=== PATIENT | male | born 2000 | race African-American/Black ===

== ENCOUNTER 2022-11-02 20:42 | Emergency (ER) | payer MEDICARE, MEDICAID, SELFPAY ==
[2022-11-02 20:50] VITALS: BP 127/82; PULSE 80; RESP 18; TEMP 36.6; O2SAT 96; BMI 34.9
[2022-11-02 21:30] LABS: Add Manual Diff / Slide Review NO; Basophils Absolute Auto 100 /uL (0-100); Basophils Percent Auto 0.7 % (0-2); Eosinophils Absolute Auto 300 /uL (0-450); Eosinophils Percent Auto 3.3 % (2-4); Hematocrit 39.6 % (41-53); Hemoglobin 13.7 g/dL (13.5-17.5); Lymphocytes Absolute Auto 2900 /uL (1100-4500); Lymphocytes Percent Auto 32.2 % (25-40); Mean Corpuscular HGB Conc 34.6 % (30-36); Mean Corpuscular Hemoglobin 30.4 PG (26-34); Mean Corpuscular Volume 87.9 fL (80-100); Monocytes Absolute Auto 600 /uL (0-900); Monocytes Percent Auto 6.9 % (3-14); Neutrophils Absolute Auto 5100 /uL (1500-7000); Neutrophils Percent Auto 56.9 % (50-75); Platelet Count 246 X10^3/uL (150-400); Red Blood Cell Count 4.51 X10^6/uL (4.5-5.9); Red Cell Distribution Width 14.6 % (11.6-14.8)
[2022-11-02 21:44] LABS: Alanine Aminotransferase 60 IU/L (<50); Albumin 4.5 g/dL (3.5-5.0); Albumin Globulin Ratio 1.5 (1.0-2.8); Alkaline Phosphatase 78 U/L (38-126); Aspartate Aminotransferase 41 IU/L (17-59); BUN Creatinine Ratio 15.6 (6-22); Bilirubin Total 0.3 mg/dL (0.2-1.3); Blood Urea Nitrogen 15 mg/dL (9-20); Carbon Dioxide 28 mmol/L (22-32); Chloride 105 mmol/L (98-107); Estimated Glomerular Filt Rate > 60 mL/min (>60); Globulin 3.1 g/dL (1.7-4.1); Glucose 91 mg/dL (70-100); HEMOLYSIS < 15 (0-50); Potassium 4.1 mmol/L (3.4-5.1); Sodium 140 mmol/L (137-145); Total Protein 7.6 g/dL (6.3-8.2)
[2022-11-02 21:53] LABS: Ethanol (ETOH) < 10 mg/dL
--- NOTE | 2022-11-02 21:59 | ED.PSYCH ---
HPI - Psych <Sher Vazquez DO - Last Filed: 11/04/22 00:43> General Chief Complaint: Psychiatric Symptoms Stated Complaint: SI, hearing voices Time Seen by Provider: 11/02/22 21:07 Source: patient Mode of arrival: Ambulatory History of Present Illness HPI Narrative: Patient is a 22-year-old male who comes in the emergency department today for evaluation of ?suicidal ideation? and also seeing things and hearing things. Is reported that he recently spent approximately 14 days had a mental health facility and was just discharged earlier this week. He is on Abilify and gabapentin but it is questionable as to whether not he has been taking these medicines over the past couple days. His father was the 1 who brought him here to the emergency department. Patient does have an extensive history of schizophrenia. During my evaluation the patient stated that he had ?suicidal ideation? but would not specifically go into the specifics of this with myself. He stated that he was seeing his brother in the room. He stated that the voice he was hearing was ?God? at one point he asked me ?are you God?. Patient denied that the voice that he was hearing was telling him to hurt himself. He stated that he does feel like he needs admitted back to a mental health facility in his willing to do so. He denies any drugs or alcohol. He stated that he did not try to hurt himself. Related Data Home Medications Medication Instructions Recorded Confirmed aripiprazole 20 mg tablet 20 mg PO DAILY 11/02/22 11/03/22 gabapentin 300 mg capsule 300 mg PO QPM 11/02/22 11/03/22 omeprazole 20 mg capsule,delayed 20 mg PO QAM 11/02/22 11/03/22 release Previous Rx's Medication Instructions Recorded penicillin V potassium 500 mg 500 mg PO QID 7 days #28 tabs 11/03/22 tablet Allergies Allergy/AdvReac Type Severity Reaction Status Date / Time No Known Drug Allergies Allergy Verified 11/02/22 22:12 Review of Systems <DO Andrew Conrad Last Filed: 11/04/22 00:43> Constitutional Comments: No fevers Cardiovascular Comments: Denies chest pain Respiratory Comments: Denies shortness of breath Gastrointestinal Comments: Denies abdominal pain Psychiatric Psychiatric: Reports system reviewed and no additional complaints, except as documented Patient History <DO Andrew Conrad Last Filed: 11/04/22 00:43> Social History Smoking Status: Current some day smoker Smoking Status: Current some day smoker Substance Use Type: does not use Exam <Sher Vazquez DO - Last Filed: 11/04/22 00:43> Initial Vital Signs Initial Vital Signs: Vital Signs Temperature 98 F 11/02/22 20:50 Pulse Rate 80 11/02/22 20:50 Respiratory Rate 18 11/02/22 20:50 Blood Pressure 127/82 11/02/22 20:50 Pulse Oximetry 96 11/02/22 20:50 Oxygen Delivery Method Room Air 11/02/22 20:50 Const General: comfortable and No ill appearing HENMT Head: normal to inspection and normocephalic Resp Effort & Inspection: normal respiratory effort Auscultation: clear to auscultation bilaterally Cardio Rate: regular rate Rhythm: regular rhythm GI Inspection: normal to inspection and non-distended Skin General: no rashes or lesions noted Neuro Other: Patient is alert to person and place Extrem Other: No gross deformities Psych Other: Patient is calm. He is cooperative. He is very respectful. He does state that he is ?suicidal ideation? but no specific plan. Patient does endorse visual hallucinations. He states he seeing his brother in the room. He also endorses auditory hallucinations. States he is hearing got talk to himself. He does appear to be somewhat paranoid. <Ricardo Puente DO - Last Filed: 11/04/22 07:09> Initial Vital Signs Initial Vital Signs: Vital Signs Temperature 98 F 11/02/22 20:50 Pulse Rate 80 11/02/22 20:50 Respiratory Rate 18 11/02/22 20:50 Blood Pressure 127/82 11/02/22 20:50 Pulse Oximetry 96 11/02/22 20:50 Oxygen Delivery Method Room Air 11/02/22 20:50 Course <Sher Vazquez DO - Last Filed: 11/04/22 00:43> Orders Ordered: Discontinued Medications Lorazepam (Lorazepam 0.5 Mg Tablet) 1 mg PO NOW ONE Stop: 11/03/22 11:29 Last Admin: 11/03/22 12:13 Dose: 1 mg Documented By: ROSS Lorazepam (Lorazepam 0.5 Mg Tablet) 1 mg PO NOW ONE Stop: 11/03/22 19:20 Last Admin: 11/03/22 19:26 Dose: 1 mg Documented By: BS Olanzapine (Olanzapine Odt 10 Mg Tab) 10 mg PO NOW ONE Stop: 11/02/22 22:00 Last Admin: 11/02/22 22:10 Dose: 10 mg Documented By: SB Vital Signs Vital signs: Vital Signs - 8 hr 11/03/22 17:40 Temperature 98.8 F Pulse Rate 74 Blood Pressure 119/68 Pulse Oximetry 94 Oxygen Delivery Method Room Air <Ricardo Puente DO - Last Filed: 11/04/22 07:09> Orders Ordered: Discontinued Medications Lorazepam (Lorazepam 0.5 Mg Tablet) 1 mg PO NOW ONE Stop: 11/03/22 11:29 Last Admin: 11/03/22 12:13 Dose: 1 mg Documented By: ROSS Lorazepam (Lorazepam 0.5 Mg Tablet) 1 mg PO NOW ONE Stop: 11/03/22 19:20 Last Admin: 11/03/22 19:26 Dose: 1 mg Documented By: RIP Olanzapine (Olanzapine Odt 10 Mg Tab) 10 mg PO NOW ONE Stop: 11/02/22 22:00 Last Admin: 11/02/22 22:10 Dose: 10 mg Documented By: SB Vital Signs Vital signs: Vital Signs - 8 hr 11/03/22 17:40 Temperature 98.8 F Pulse Rate 74 Blood Pressure 119/68 Pulse Oximetry 94 Oxygen Delivery Method Room Air MDM - Psych <Sher Vazquez DO - Last Filed: 11/04/22 00:43> Lab Data Attestation: I reviewed the patient's lab results. 11/02/22 21:21 11/02/22 21:21 Labs: Lab Results 11/02/22 11/02/22 11/02/22 Range/Units 21:07 21:07 21:21 WBC 9.0 (4.5-11.0) X10^3/uL RBC 4.51 (4.5-5.9) X10^6/uL Hgb 13.7 (13.5-17.5) g/dL Hct 39.6 L (41-53) % MCV 87.9 (80-100) fL MCH 30.4 (26-34) PG MCHC 34.6 (30-36) % RDW 14.6 (11.6-14.8) % Plt Count 246 (150-400) X10^3/uL Neut % (Auto) 56.9 (50-75) % Lymph % (Auto) 32.2 (25-40) % Bent % (Auto) 6.9 (3-14) % Eos % (Auto) 3.3 (2-4) % Baso % (Auto) 0.7 (0-2) % Neut # (Auto) 5100 (3901-6596) /uL Lymph # (Auto) 2900 (1198-2100) /uL Bent # (Auto) 600 (0-900) /uL Eos # (Auto) 300 (0-450) /uL Baso # (Auto) 100 (0-100) /uL Sodium (137-145) mmol/L Potassium (3.4-5.1) mmol/L Chloride (98-107) mmol/L Carbon Dioxide (22-32) mmol/L BUN (9-20) mg/dL Creatinine (0.66-1.25) mg/dL Estimated GFR (>60) mL/min BUN/Creatinine Ratio (6-22) Glucose (70-100) mg/dL Calcium (8.4-10.2) mg/dL Total Bilirubin (0.2-1.3) mg/dL AST (17-59) IU/L ALT (<50) IU/L Alkaline Phosphatase (38-126) U/L Total Protein (6.3-8.2) g/dL Albumin (3.5-5.0) g/dL Globulin (1.7-4.1) g/dL Albumin/Globulin Ratio (1.0-2.8) Urine Color Yellow Urine Appearance Clear Urine pH 6.5 (4.5-8.0) Ur Specific [place] 1.025 (1.000-1.035) Urine Protein Negative (Negative) Urine Glucose (UA) Negative (Negative) g/dL Urine Ketones Negative (NEGATIVE) Urine Occult Blood Negative (Negative) Urine Nitrate Negative (Negative) Urine Bilirubin Negative (NEGATIVE) Urine Urobilinogen 0.2 (0.2) E.U./dL Ur Leukocyte Esterase Negative (NEGATIVE) Urine RBC None seen (0-5/HPF) Urine WBC None seen (0-5/HPF) Urine Bacteria None seen (None) Ur Culture Indicated? Cult not indicated U Opiates 300ng/mL cut Negative (Negative) Ur Oxycodone Screen Negative (Negative) Urine Methadone Screen Negative (Negative) Ur Barbiturates Screen Negative (Negative) U Tricyclic Antidepress Negative (Negative) Ur Phencyclidine Scrn Negative (Negative) Ur Amphetamines Screen Negative (Negative) U Methamphetamines Scrn Negative (Negative) Ur MDMA Scrn (Ecstasy) Negative (Negative) U Benzodiazepines Scrn Positive H (Negative) Urine Cocaine Screen Negative (Negative) U Marijuana (THC) Screen Negative (Negative) Ethyl Alcohol ( - 10) mg/dL SARS-CoV-2 (PCR) (Negative) 11/02/22 11/03/22 Range/Units 21:21 09:41 WBC (4.5-11.0) X10^3/uL RBC (4.5-5.9) X10^6/uL Hgb (13.5-17.5) g/dL Hct (41-53) % MCV (80-100) fL MCH (26-34) PG MCHC (30-36) % RDW (11.6-14.8) % Plt Count (150-400) X10^3/uL Neut % (Auto) (50-75) % Lymph % (Auto) (25-40) % Bent % (Auto) (3-14) % Eos % (Auto) (2-4) % Baso % (Auto) (0-2) % Neut # (Auto) (7617-9633) /uL Lymph # (Auto) (5780-1098) /uL Bent # (Auto) (0-900) /uL Eos # (Auto) (0-450) /uL Baso # (Auto) (0-100) /uL Sodium 140 (137-145) mmol/L Potassium 4.1 (3.4-5.1) mmol/L Chloride 105 (98-107) mmol/L Carbon Dioxide 28 (22-32) mmol/L BUN 15 (9-20) mg/dL Creatinine 0.96 (0.66-1.25) mg/dL Estimated GFR > 60 (>60) mL/min BUN/Creatinine Ratio 15.6 (6-22) Glucose 91 (70-100) mg/dL Calcium 9.0 (8.4-10.2) mg/dL Total Bilirubin 0.3 (0.2-1.3) mg/dL AST 41 (17-59) IU/L ALT 60 H (<50) IU/L Alkaline Phosphatase 78 (38-126) U/L Total Protein 7.6 (6.3-8.2) g/dL Albumin 4.5 (3.5-5.0) g/dL Globulin 3.1 (1.7-4.1) g/dL Albumin/Globulin Ratio 1.5 (1.0-2.8) Urine Color Urine Appearance Urine pH (4.5-8.0) Ur Specific [place] (1.000-1.035) Urine Protein (Negative) Urine Glucose (UA) (Negative) g/dL Urine Ketones (NEGATIVE) Urine Occult Blood (Negative) Urine Nitrate (Negative) Urine Bilirubin (NEGATIVE) Urine Urobilinogen (0.2) E.U./dL Ur Leukocyte Esterase (NEGATIVE) Urine RBC (0-5/HPF) Urine WBC (0-5/HPF) Urine Bacteria (None) Ur Culture Indicated? U Opiates 300ng/mL cut (Negative) Ur Oxycodone Screen (Negative) Urine Methadone Screen (Negative) Ur Barbiturates Screen (Negative) U Tricyclic Antidepress (Negative) Ur Phencyclidine Scrn (Negative) Ur Amphetamines Screen (Negative) U Methamphetamines Scrn (Negative) Ur MDMA Scrn (Ecstasy) (Negative) U Benzodiazepines Scrn (Negative) Urine Cocaine Screen (Negative) U Marijuana (THC) Screen (Negative) Ethyl Alcohol < 10 ( - 10) mg/dL SARS-CoV-2 (PCR) Negative (Negative) ECG Data Attestation: I personally reviewed and interpreted this ECG as follows: Interpretation: Sinus rhythm Ventricular rate 90 Normal axis Normal QRS Normal QTC No ST T wave changes MDM Narrative Medical decision making narrative: Patient is medically clear. He did agree to take some medication to try to help calm him down. He was reassured that this was a safe place. He took the Zyprexa without any issue. Patient endorses auditory and visual hallucinations. He appears to be responding to internal stimuli. Patient is voluntary. We contacted the facility where he was just discharged earlier this week. They stated they did not have any beds and that he would need social work evaluation prior to their review of his case today. Care turned over to day provider to follow-up and disposition. Dr Vazquez: Assumed care patient at this start him I evening shift. Review patient's daily events. He remains medically cleared. He has been accepted [facility]. He is still voluntary. He did state that he was having some dental pain. He has had this in the past. He is received antibiotics in the past. He states that the pain just started today. An exam today does not show any signs of an overt infection intraorally however he is being transferred to a mental health facility and given his history there is a good chance he is going to be this facility for an extended period of time. I do feel that starting him on antibiotics is not unreasonable. He was given a prescription for this. Patient is stable for transport. <Ricardo Puente, - Last Filed: 11/04/22 07:09> Lab Data Labs: Lab Results 11/02/22 11/02/22 11/02/22 Range/Units 21:07 21:07 21:21 WBC 9.0 (4.5-11.0) X10^3/uL RBC 4.51 (4.5-5.9) X10^6/uL Hgb 13.7 (13.5-17.5) g/dL Hct 39.6 L (41-53) % MCV 87.9 (80-100) fL MCH 30.4 (26-34) PG MCHC 34.6 (30-36) % RDW 14.6 (11.6-14.8) % Plt Count 246 (150-400) X10^3/uL Neut % (Auto) 56.9 (50-75) % Lymph % (Auto) 32.2 (25-40) % Bent % (Auto) 6.9 (3-14) % Eos % (Auto) 3.3 (2-4) % Baso % (Auto) 0.7 (0-2) % Neut # (Auto) 5100 (0635-0471) /uL Lymph # (Auto) 2900 (1014-6349) /uL Bent # (Auto) 600 (0-900) /uL Eos # (Auto) 300 (0-450) /uL Baso # (Auto) 100 (0-100) /uL Sodium (137-145) mmol/L Potassium (3.4-5.1) mmol/L Chloride (98-107) mmol/L Carbon Dioxide (22-32) mmol/L BUN (9-20) mg/dL Creatinine (0.66-1.25) mg/dL Estimated GFR (>60) mL/min BUN/Creatinine Ratio (6-22) Glucose (70-100) mg/dL Calcium (8.4-10.2) mg/dL Total Bilirubin (0.2-1.3) mg/dL AST (17-59) IU/L ALT (<50) IU/L Alkaline Phosphatase (38-126) U/L Total Protein (6.3-8.2) g/dL Albumin (3.5-5.0) g/dL Globulin (1.7-4.1) g/dL Albumin/Globulin Ratio (1.0-2.8) Urine Color Yellow Urine Appearance Clear Urine pH 6.5 (4.5-8.0) Ur Specific [place] 1.025 (1.000-1.035) Urine Protein Negative (Negative) Urine Glucose (UA) Negative (Negative) g/dL Urine Ketones Negative (NEGATIVE) Urine Occult Blood Negative (Negative) Urine Nitrate Negative (Negative) Urine Bilirubin Negative (NEGATIVE) Urine Urobilinogen 0.2 (0.2) E.U./dL Ur Leukocyte Esterase Negative (NEGATIVE) Urine RBC None seen (0-5/HPF) Urine WBC None seen (0-5/HPF) Urine Bacteria None seen (None) Ur Culture Indicated? Cult not indicated U Opiates 300ng/mL cut Negative (Negative) Ur Oxycodone Screen Negative (Negative) Urine Methadone Screen Negative (Negative) Ur Barbiturates Screen Negative (Negative) U Tricyclic Antidepress Negative (Negative) Ur Phencyclidine Scrn Negative (Negative) Ur Amphetamines Screen Negative (Negative) U Methamphetamines Scrn Negative (Negative) Ur MDMA Scrn (Ecstasy) Negative (Negative) U Benzodiazepines Scrn Positive H (Negative) Urine Cocaine Screen Negative (Negative) U Marijuana (THC) Screen Negative (Negative) Ethyl Alcohol ( - 10) mg/dL SARS-CoV-2 (PCR) (Negative) 11/02/22 11/03/22 Range/Units 21:21 09:41 WBC (4.5-11.0) X10^3/uL RBC (4.5-5.9) X10^6/uL Hgb (13.5-17.5) g/dL Hct (41-53) % MCV (80-100) fL MCH (26-34) PG MCHC (30-36) % RDW (11.6-14.8) % Plt Count (150-400) X10^3/uL Neut % (Auto) (50-75) % Lymph % (Auto) (25-40) % Bent % (Auto) (3-14) % Eos % (Auto) (2-4) % Baso % (Auto) (0-2) % Neut # (Auto) (9714-8387) /uL Lymph # (Auto) (7475-0803) /uL Bent # (Auto) (0-900) /uL Eos # (Auto) (0-450) /uL Baso # (Auto) (0-100) /uL Sodium 140 (137-145) mmol/L Potassium 4.1 (3.4-5.1) mmol/L Chloride 105 (98-107) mmol/L Carbon Dioxide 28 (22-32) mmol/L BUN 15 (9-20) mg/dL Creatinine 0.96 (0.66-1.25) mg/dL Estimated GFR > 60 (>60) mL/min BUN/Creatinine Ratio 15.6 (6-22) Glucose 91 (70-100) mg/dL Calcium 9.0 (8.4-10.2) mg/dL Total Bilirubin 0.3 (0.2-1.3) mg/dL AST 41 (17-59) IU/L ALT 60 H (<50) IU/L Alkaline Phosphatase 78 (38-126) U/L Total Protein 7.6 (6.3-8.2) g/dL Albumin 4.5 (3.5-5.0) g/dL Globulin 3.1 (1.7-4.1) g/dL Albumin/Globulin Ratio 1.5 (1.0-2.8) Urine Color Urine Appearance Urine pH (4.5-8.0) Ur Specific [place] (1.000-1.035) Urine Protein (Negative) Urine Glucose (UA) (Negative) g/dL Urine Ketones (NEGATIVE) Urine Occult Blood (Negative) Urine Nitrate (Negative) Urine Bilirubin (NEGATIVE) Urine Urobilinogen (0.2) E.U./dL Ur Leukocyte Esterase (NEGATIVE) Urine RBC (0-5/HPF) Urine WBC (0-5/HPF) Urine Bacteria (None) Ur Culture Indicated? U Opiates 300ng/mL cut (Negative) Ur Oxycodone Screen (Negative) Urine Methadone Screen (Negative) Ur Barbiturates Screen (Negative) U Tricyclic Antidepress (Negative) Ur Phencyclidine Scrn (Negative) Ur Amphetamines Screen (Negative) U Methamphetamines Scrn (Negative) Ur MDMA Scrn (Ecstasy) (Negative) U Benzodiazepines Scrn (Negative) Urine Cocaine Screen (Negative) U Marijuana (THC) Screen (Negative) Ethyl Alcohol < 10 ( - 10) mg/dL SARS-CoV-2 (PCR) Negative (Negative) MDM Narrative Medical decision making narrative: Patient is medically clear. He did agree to take some medication to try to help calm him down. He was reassured that this was a safe place. He took the Zyprexa without any issue. Patient endorses auditory and visual hallucinations. He appears to be responding to internal stimuli. Patient is voluntary. We contacted the facility where he was just discharged earlier this week. They stated they did not have any beds and that he would need social work evaluation prior to their review of his case today. Care turned over to day provider to follow-up and disposition. [0700] (Kwame) Patient received in sign out from [Taylor]. I have reviewed the clinical course and performed an independent history and physical exam. Resting awaiting [employer] 1300 - working on placement Dr Vazquez: Assumed care patient at this start him I evening shift. Review patient's daily events. He remains medically cleared. He has been accepted at [facility]. He is still voluntary. He did state that he was having some dental pain. He has had this in the past. He is received antibiotics in the past. He states that the pain just started today. An exam today does not show any signs of an overt infection intraorally however he is being transferred to a mental health facility and given his history there is a good chance he is going to be this facility for an extended period of time. I do feel that starting him on antibiotics is not unreasonable. He was given a prescription for this. Patient is stable for transport. <Ricardo Puente, DO - Last Filed: 11/04/22 07:09> Critical Care Time Critical Care Time: Yes Total Critical Care Time: 35 Attestation: The high probability of a clinically significant, sudden or life threatening deterioration of the [Psych] system(s) required my full and direct attention, intervention and personal management. The aggregate critical care time was [35] minutes. This time is in addition to time spent performing reported procedures but includes the following: [x] Data Review and interpretation [x] Patient assessment and monitoring of vital signs [x] Documentation [x] Medication orders and management Discharge Plan Departure Patient Disposition: Xfer Psychiatric Hosp Clinical Impression: Suicidal ideation, Hallucination, visual, Auditory hallucinations, Pain, dental Prescriptions: New penicillin V potassium 500 mg tablet 500 mg PO QID 7 Days Qty: 28 0RF No Action aripiprazole 20 mg tablet 20 mg PO DAILY gabapentin 300 mg capsule 300 mg PO QPM omeprazole 20 mg capsule,delayed release(DR/EC) 20 mg PO QAM
[2022-11-02] MEDS: OLANZapine ODT 10 MG TAB PO (22:10)
[2022-11-02 22:25] LABS: Appearance Urine UA CLEAR; Bilirubin Urine UA NEGATIVE (NEGATIVE); Color Urine UA YELLOW; Glucose Urine UA NEGATIVE (Negative); Ketones Urine UA NEGATIVE (NEGATIVE); Leukocyte Esterase Urine UA NEGATIVE (NEGATIVE); Nitrite Urine UA NEGATIVE (Negative); Occult Blood Urine UA NEGATIVE (Negative); Protein Urine UA NEGATIVE (Negative); Specific Gravity Urine UA 1.025 (1.000-1.035); Urobilinogen Urine UA 0.2 E.U./dL (0.2); pH Urine UA 6.5 (4.5-8.0)
[2022-11-02 22:34] LABS: Ur Creatinine Normal (Normal); Ur Specific Gravity Normal (Normal); Urine Tetrahydrocannabinol Negative (Negative); Urine pH Normal (Normal)
[2022-11-02 22:35] LABS: UR Morphine/Opiate cutoff 300 Negative (Negative); Urine Amphetamines Negative (Negative); Urine Barbiturates Negative (Negative); Urine Benzodiazepines Positive (Negative); Urine Cocaine Negative (Negative); Urine MDMA Negative (Negative); Urine Methadone Negative (Negative); Urine Methamphetamines Negative (Negative); Urine Oxycodone Negative (Negative); Urine Phencyclidine Negative (Negative); Urine Tricyclic Antidepressant Negative (Negative)
[2022-11-02 22:43] LABS: Bacteria Urine None Seen; Culture Indicated Urine Cult Not Indicated; RBC Urine None Seen (0-5/HPF); WBC Urine None Seen (0-5/HPF)
[2022-11-03 06:25] VITALS: BP 123/66; PULSE 70; O2SAT 96
[2022-11-03 09:56] VITALS: BP 122/66; PULSE 69; RESP 14; O2SAT 99
[2022-11-03 10:11] LABS: COVID19 -Nasal RAPID Negative (Negative)
[2022-11-03] MEDS: LORazepam 0.5 MG TABLET 1 MG PO ×2 (12:13→19:26)
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
--- NOTE | 2022-11-03 13:34 | PC.NURSE ---
social media community manager talking to
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
[2022-11-03 17:40] VITALS: BP 119/68; PULSE 74; TEMP 37.1; O2SAT 94
--- NOTE | 2022-11-03 20:09 | PC.NURSE ---
NEON LIGHT INSTALLER note: NWA supervisor opening and picking at 0100 for a 0215 drop off.
== END 2022-11-04 01:45 ==
PROVIDERS: Emergency Medicine; Emergency Provider Emergency Medicine
DX: R45.851 Suicidal ideations (principal); R44.1 Visual hallucinations; R44.0 Auditory hallucinations; R07.9 Chest pain, unspecified; K08.89 Other specified disorders of teeth and supporting structures; Z20.822 Contact with and (suspected) exposure to COVID-19
CPT/HCPCS: 36415; 80053; 80305; 80320; 81001; 85025; 87635; 93005; 93010; 99284; 99285; C9803

== ENCOUNTER 2023-03-18 13:57 | Emergency (ER) | payer MEDICARE, MEDICAID, SELFPAY ==
[2023-03-18 14:58] VITALS: BP 131/69; PULSE 94; RESP 18; TEMP 36.8; O2SAT 96; BMI 43.2
== END 2023-03-18 18:05 | disposition left against medical advice (07) ==
PROVIDERS: Emergency Provider Emergency Medicine
DX: R51.9 Headache, unspecified (principal)
CPT/HCPCS: 99281

== ENCOUNTER 2023-05-16 22:45 | Emergency (ER) | payer MEDICARE, MEDICAID, SELFPAY ==
[2023-05-16 22:50] VITALS: BP 136/83; PULSE 114; RESP 22; TEMP 37.2; O2SAT 96; BMI 45.6
--- NOTE | 2023-05-16 23:16 | ED_ITS ---
HPI - Psych General Chief Complaint: Psychiatric Symptoms Stated Complaint: hearing voices, wants help Time Seen by Provider: 05/16/23 22:53 Source: patient Mode of arrival: Ambulatory History of Present Illness HPI Narrative: 23-year-old male with history of schizoaffective disorder presents requesting help. He states that he always hears voices but they are more persistent today and he has suicidal ideation with plans to overdose on his psychiatric medications. He reports intermittent compliance with his medications. Denies drug or alcohol use. Related Data Home Medications Medication Instructions Recorded Confirmed bupropion HCl 150 mg 24 hr tablet, 150 mg PO QAM 03/18/23 03/18/23 extended release divalproex 500 mg tablet,delayed 500 mg PO BID 03/18/23 03/18/23 release olanzapine 5 mg tablet 5 mg PO ONCE PM 03/18/23 03/18/23 paliperidone palmitate 156 mg/mL mg IM 03/18/23 intramuscular syringe (Invega Sustenna) Allergies Allergy/AdvReac Type Severity Reaction Status Date / Time No Known Drug Allergies Allergy Verified 03/18/23 14:58 Review of Systems Review of Systems Narrative: Negative except as noted above Patient History Social History Smoking Status: Current some day smoker Smoking Status: Current some day smoker Substance Use Type: does not use Exam Initial Vital Signs Initial Vital Signs: Vital Signs Temperature 98.9 F 05/16/23 22:50 Pulse Rate 114 H 05/16/23 22:50 Respiratory Rate 22 05/16/23 22:50 Blood Pressure 136/83 05/16/23 22:50 Pulse Oximetry 96 05/16/23 22:50 Oxygen Delivery Method Room Air 05/16/23 22:50 Const: Awake, alert, no acute distress, nontoxic appearing Eyes: PERRL, EOMI, conjunctiva normal ENT: Atraumatic, dentition normal, mucous membranes moist Cardiac: regular rate, regular rhythm RESP: unlabored, clear bilaterally, no wheezing GI: Atraumatic, soft, nontender, nondistended, no rebound, no guarding MSK: Atraumatic, full range of motion, pulses equal Skin: Warm, Dry, intact, no rashes Neuro: AO x3, CN II-XII grossly intact, moves all extremities Psych: Flat affect, depressed mood, suicidal ideation with plan Course Course Course Narrative: Nontoxic appearing patient presenting for worsening auditory hallucinations and suicidal ideation. Patient previously here in October with similar presentation. At this time he is calm and cooperative, denying any self-harm attempt or drug/alcohol use this evening. Orders Ordered: Discontinued Medications Olanzapine (Olanzapine 2.5 Mg Tablet) 5 mg PO BEDTIME ONE Stop: 05/17/23 02:15 Last Admin: 05/17/23 02:19 Dose: 5 mg Documented By: BB Reevaluation(s) Reevaluation #1: Labs reviewed, no acute abnormalities. Medically cleared for SW eval in AM. Reevaluation #2: Patient accepted at [facility], pending transport. Patient has been calm and cooperative throughout the day with no events reported by nursing staff. Vital Signs Vital signs: Vital Signs - 8 hr 05/17/23 20:15 Pulse Rate 70 Respiratory Rate 18 Blood Pressure 130/56 L Pulse Oximetry 97 Oxygen Delivery Method Room Air MDM - Psych Differential Diagnosis Differential diagnosis: Likely acute psychosis, chronic schizophrenia and suicidal ideation Lab Data 05/16/23 23:12 05/16/23 23:12 Labs: Lab Results 05/16/23 05/17/23 05/17/23 Range/Units 23:12 00:54 02:37 WBC 7.7 (4.5-11.0) X10^3/uL RBC 4.62 (4.5-5.9) X10^6/uL Hgb 13.8 (13.5-17.5) g/dL Hct 39.8 L (41-53) % MCV 86.1 (80-100) fL MCH 30.0 (26-34) PG MCHC 34.8 (30-36) % RDW 14.1 (11.6-14.8) % Plt Count 296 (150-400) X10^3/uL Neut % (Auto) 63.8 (50-75) % Lymph % (Auto) 26.1 (25-40) % Elliott % (Auto) 7.4 (3-14) % Eos % (Auto) 1.9 L (2-4) % Baso % (Auto) 0.8 (0-2) % Neut # (Auto) 4900 (0544-4115) /uL Lymph # (Auto) 2000 (5048-2218) /uL Elliott # (Auto) 600 (0-900) /uL Eos # (Auto) 100 (0-450) /uL Baso # (Auto) 100 (0-100) /uL Sodium 139 (137-145) mmol/L Potassium 4.0 (3.4-5.1) mmol/L Chloride 106 (98-107) mmol/L Carbon Dioxide 23 (22-32) mmol/L BUN 11 (9-20) mg/dL Creatinine 0.95 (0.66-1.25) mg/dL Estimated GFR > 60 (>60) mL/min BUN/Creatinine Ratio 11.6 (6-22) Glucose 92 (70-100) mg/dL Calcium 9.7 (8.4-10.2) mg/dL Total Bilirubin 0.4 (0.2-1.3) mg/dL AST 73 H (17-59) IU/L ALT 52 H (<50) IU/L Alkaline Phosphatase 100 (38-126) U/L Total Protein 7.8 (6.3-8.2) g/dL Albumin 4.4 (3.5-5.0) g/dL Globulin 3.4 (1.7-4.1) g/dL Albumin/Globulin Ratio 1.3 (1.0-2.8) TSH 2.80 (0.47-4.68) uIU/mL Urine Color Yellow Urine Appearance Clear Urine pH 6.5 (4.5-8.0) Ur Specific Hayes 1.010 (1.000-1.035) Urine Protein Negative (Negative) Urine Glucose (UA) Negative (Negative) g/dL Urine Ketones Negative (NEGATIVE) Urine Occult Blood Negative (Negative) Urine Nitrate Negative (Negative) Urine Bilirubin Negative (NEGATIVE) Urine Urobilinogen 0.2 (0.2) E.U./dL Ur Leukocyte Esterase Negative (NEGATIVE) Urine RBC None seen (0-5/HPF) Urine WBC None seen (0-5/HPF) Ur Squamous Epith Cells None seen (0-5/HPF) Urine Bacteria None seen (None) Ur Culture Indicated? Cult not indicated Salicylates < 1.0 (<20) mg/dL U Opiates 300ng/mL cut Negative (Negative) Ur Oxycodone Screen Negative (Negative) Urine Methadone Screen Negative (Negative) Acetaminophen < 10 (10-30) ug/mL Ur Barbiturates Screen Negative (Negative) U Tricyclic Antidepress Negative (Negative) Ur Phencyclidine Scrn Negative (Negative) Ur Amphetamines Screen Negative (Negative) U Methamphetamines Scrn Negative (Negative) Ur MDMA Scrn (Ecstasy) Negative (Negative) U Benzodiazepines Scrn Negative (Negative) Urine Cocaine Screen Negative (Negative) U Marijuana (THC) Screen Negative (Negative) Ethyl Alcohol < 10 ( - 10) mg/dL SARS-CoV-2 (PCR) Negative (Negative) Treatment and disposition Social Determinants of Health that impact treatment or disposition: s chizophrenia, good social support Discharge Plan Departure Patient Disposition: Xfer Psychiatric Hosp Clinical Impression: Acute psychosis, Suicidal ideation, Chronic schizophrenia Prescriptions: No Action olanzapine 5 mg tablet 5 mg PO ONCE PM divalproex 500 mg tablet,delayed release (DR/EC) 500 mg PO BID bupropion HCl 150 mg tablet extended release 24 hr 150 mg PO QAM Invega Sustenna 156 mg/mL syringe IM
[2023-05-16 23:22] LABS: Add Manual Diff / Slide Review NO; Basophils Absolute Auto 100 /uL (0-100); Basophils Percent Auto 0.8 % (0-2); Eosinophils Absolute Auto 100 /uL (0-450); Eosinophils Percent Auto 1.9 % (2-4); Hematocrit 39.8 % (41-53); Hemoglobin 13.8 g/dL (13.5-17.5); Lymphocytes Absolute Auto 2000 /uL (1100-4500); Lymphocytes Percent Auto 26.1 % (25-40); Mean Corpuscular HGB Conc 34.8 % (30-36); Mean Corpuscular Volume 86.1 fL (80-100); Monocytes Absolute Auto 600 /uL (0-900); Monocytes Percent Auto 7.4 % (3-14); Neutrophils Absolute Auto 4900 /uL (1500-7000); Neutrophils Percent Auto 63.8 % (50-75); Platelet Count 296 X10^3/uL (150-400); Red Blood Cell Count 4.62 X10^6/uL (4.5-5.9); Red Cell Distribution Width 14.1 % (11.6-14.8); White Blood Cell Count 7.7 X10^3/uL (4.5-11.0)
[2023-05-16 23:38] LABS: Acetaminophen < 10 ug/mL (10-30); Alanine Aminotransferase 52 IU/L (<50); Albumin 4.4 g/dL (3.5-5.0); Albumin Globulin Ratio 1.3 (1.0-2.8); Alkaline Phosphatase 100 U/L (38-126); Aspartate Aminotransferase 73 IU/L (17-59); BUN Creatinine Ratio 11.6 (6-22); Bilirubin Total 0.4 mg/dL (0.2-1.3); Blood Urea Nitrogen 11 mg/dL (9-20); Calcium 9.7 mg/dL (8.4-10.2); Carbon Dioxide 23 mmol/L (22-32); Chloride 106 mmol/L (98-107); Estimated Glomerular Filt Rate > 60 mL/min (>60); Ethanol (ETOH) < 10 mg/dL; Globulin 3.4 g/dL (1.7-4.1); Glucose 92 mg/dL (70-100); HEMOLYSIS < 15 (0-50); Salicylate < 1.0 mg/dL (<20); Sodium 139 mmol/L (137-145); Total Protein 7.8 g/dL (6.3-8.2)
--- NOTE | 2023-05-17 00:38 | PC.NURSE ---
Provided patient with snack and andre garret.
[2023-05-17 01:00] VITALS: BP 110/66; PULSE 82; RESP 16; TEMP 36.8; O2SAT 96
[2023-05-17 01:26] LABS: Appearance Urine UA CLEAR; Bilirubin Urine UA NEGATIVE (NEGATIVE); Color Urine UA YELLOW; Glucose Urine UA NEGATIVE (Negative); Ketones Urine UA NEGATIVE (NEGATIVE); Leukocyte Esterase Urine UA NEGATIVE (NEGATIVE); Nitrite Urine UA NEGATIVE (Negative); Occult Blood Urine UA NEGATIVE (Negative); Protein Urine UA NEGATIVE (Negative); Urobilinogen Urine UA 0.2 E.U./dL (0.2); pH Urine UA 6.5 (4.5-8.0)
[2023-05-17 01:30] LABS: UR Morphine/Opiate cutoff 300 Negative (Negative); Ur Creatinine Normal (Normal); Ur Specific Gravity Normal (Normal); Urine Amphetamines Negative (Negative); Urine Barbiturates Negative (Negative); Urine Benzodiazepines Negative (Negative); Urine Cocaine Negative (Negative); Urine MDMA Negative (Negative); Urine Methadone Negative (Negative); Urine Methamphetamines Negative (Negative); Urine Oxycodone Negative (Negative); Urine Phencyclidine Negative (Negative); Urine Tetrahydrocannabinol Negative (Negative); Urine Tricyclic Antidepressant Negative (Negative); Urine pH Normal (Normal)
[2023-05-17 01:35] LABS: Bacteria Urine None Seen; Culture Indicated Urine Cult Not Indicated; RBC Urine None Seen (0-5/HPF); Squamous Epithelial Cell Urine None Seen (0-5/HPF); WBC Urine None Seen (0-5/HPF)
[2023-05-17] MEDS: OLANZapine 2.5 MG TABLET 5 MG PO (02:19)
[2023-05-17 03:04] LABS: COVID19 -Nasal RAPID Negative (Negative)
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
[2023-05-17 12:16] VITALS: BP 130/82; PULSE 107; O2SAT 98
--- NOTE | 2023-05-17 15:53 | CM.SWNOTE ---
ED MANNEQUIN REFINISHER Note MANNEQUIN REFINISHER calls [facility], it is reported that the unit is full today and they may have availability tomorrow. medical examiner calls [facility], it is reported they are full and may have beds later today. MANNEQUIN REFINISHER calls [facility] it is reported they have beds and can review patient. MANNEQUIN REFINISHER faxes clinicals for review. MANNEQUIN REFINISHER calls [facility] intake, it is reported they have 1 bed and can review patient, MANNEQUIN REFINISHER faxes clinicals for review. MANNEQUIN REFINISHER calls [facility] and leaves VM MANNEQUIN REFINISHER calls [facility], they do not have beds. [facility] faxes that they do not have bed availability. MANNEQUIN REFINISHER calls [facility], it is reported that they do not have beds. MANNEQUIN REFINISHER receives return call from [facility], it is reported that patient has been accepted by AMBER Combs. RN to RN is [phone], with ETA of 2130. [facility] requires pre auth from insurance. MANNEQUIN REFINISHER calls [employer] pre-auth line and faxes pre-auth form and clinicals. MANNEQUIN REFINISHER receives Pre-auth # [id number]. MANNEQUIN REFINISHER calls [facility] Amalia at intake and she takes that they will formally accept patient. A ambulance transport set up for 2044 pickling operator. [facility] later calls back and states they can accept patient, they are informed that patient was accepted elsewhere. MANNEQUIN REFINISHER informs other facilities as well. Patient is currently sleeping, MANNEQUIN REFINISHER to inform patient of this transfer and inform his father if patient gives consent. Plan: patient to transfer to [facility] unit for inpatient hospitalization this evening. Vidhya Cordon, SCALE AND SKIP CAR OPERATOR
[2023-05-17 20:15] VITALS: BP 130/56; PULSE 70; RESP 18; O2SAT 97
== END 2023-05-17 21:14 ==
PROVIDERS: Emergency Provider Emergency Medicine
DX: F20.9 Schizophrenia, unspecified (principal); R45.851 Suicidal ideations; Z11.52 Encounter for screening for COVID-19
CPT/HCPCS: 36415; 80053; 80305; 80320; 80329; 81001; 84443; 85025; 87635; 93005; 99284; C9803; G0480

== ENCOUNTER 2023-06-22 18:50 | Emergency (ER) | payer MEDICARE, MEDICAID, OTHER, SELFPAY ==
[2023-06-22 19:10] VITALS: BP 167/92; PULSE 113; RESP 18; TEMP 37.1; O2SAT 95; BMI 47.1
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
--- NOTE | 2023-06-22 19:32 | ED.GENADULT ---
HPI - General Adult General Chief complaint: Psychiatric Symptoms Stated complaint: mental health issues Time Seen by Provider: 06/22/23 19:31 Source: patient Mode of arrival: Ambulatory History of Present Illness HPI narrative: 23 yo Patient has a diagnosis is schizoaffective bipolar type., took 4 doses of his anxiety medication and he is unable to defined which medication is his ?anxiety medication. His intention was to overdose. Patient remains suicidal in the emergency department and has not been taking medications, medications were refilled approximately a week ago. He states that he has not taken any medications since his [facility] stay from May 17 to May 24. There was a psychiatric admission at [facility] in May. His reason for admission at that time was increasing suicidal ideation. He is presenting requesting help. Related Data Home Medications Medication Instructions Recorded Confirmed bupropion HCl 150 mg 24 hr tablet, 150 mg PO QAM 03/18/23 06/22/23 extended release divalproex 500 mg tablet,delayed 1,000 mg PO BID 03/18/23 06/22/23 release olanzapine 5 mg tablet 5 mg PO ONCE PM 03/18/23 06/22/23 buspirone 5 mg tablet 5 mg PO 3XD anxiety 06/22/23 06/22/23 risperidone 2 mg tablet 2 mg PO ONCE PM 06/22/23 06/22/23 Allergies Allergy/AdvReac Type Severity Reaction Status Date / Time No Known Drug Allergies Allergy Verified 06/22/23 19:21 Review of Systems Review of Systems Narrative: Pertinent positive and negative findings as per HPI Patient History Medical History (Updated 06/22/23 @ 20:20 by Evonne De Guzman MD) Schizoaffective disorder, bipolar type Social History Smoking Status: Current every day smoker Smoking Status: Current every day smoker tobacco type: cigarettes and vaping Substance Use Type: does not use Exam Initial Vital Signs Initial Vital Signs: Vital Signs Temperature 98.7 F 06/22/23 19:10 Pulse Rate 113 H 06/22/23 19:10 Respiratory Rate 18 06/22/23 19:10 Blood Pressure 167/92 H 06/22/23 19:10 Pulse Oximetry 95 06/22/23 19:10 Oxygen Delivery Method Room Air 06/22/23 19:10 General: Healthy appearing, in no acute distress. Able to give a complete and coherent history. Well-nourished well-developed HEENT: Moist mucous membranes, normal sclera with reactive pupils, Respiratory: Lungs are clear to auscultation, no wheezing no rales no rhonchi. Full and symmetrical air movement Cardiac: Regular rate and rhythm no murmurs no bruits Abdomen: Soft, nontender, good bowel tones, no flank pain Skin: Warm and dry, no rashes, no evidence of self-harm Neurologic: Grossly neurologically intact with no obvious asymmetries or abnormalities Extremities: No trauma, well perfused Psych: Cooperative, somewhat flat affect, quiet but fluent speech, not responding to internal stimuli Course Orders Ordered: Discontinued Medications Divalproex Sodium (Divalproex Er 250 Mg Tab) 1,000 mg PO NOW ONE Stop: 06/22/23 19:59 Last Admin: 06/22/23 20:12 Dose: 1,000 mg Documented By: ALBAN Risperidone (Risperidone 1 Mg Tablet) 2 mg PO BEDTIME LINDA Last Admin: 06/22/23 20:12 Dose: 2 mg Documented By: ALBAN Vital Signs Vital signs: Vital Signs - 8 hr 06/22/23 23:50 Pulse Rate 108 H Respiratory Rate 18 Blood Pressure 130/78 Pulse Oximetry 99 Oxygen Delivery Method Room Air Medical Decision Making Lab Data 06/22/23 19:34 06/22/23 19:34 Labs: Lab Results 06/22/23 06/22/23 06/22/23 Range/Units 19:25 19:34 19:44 WBC 9.1 (4.5-11.0) X10^3/uL RBC 4.81 (4.5-5.9) X10^6/uL Hgb 14.4 (13.5-17.5) g/dL Hct 41.8 (41-53) % MCV 86.7 (80-100) fL MCH 30.0 (26-34) PG MCHC 34.6 (30-36) % RDW 13.7 (11.6-14.8) % Plt Count 303 (150-400) X10^3/uL Neut % (Auto) 60.1 (50-75) % Lymph % (Auto) 30.4 (25-40) % [place] % (Auto) 6.8 (3-14) % Eos % (Auto) 2.1 (2-4) % Baso % (Auto) 0.6 (0-2) % Neut # (Auto) 5500 (3755-0240) /uL Lymph # (Auto) 2800 (4841-2877) /uL [place] # (Auto) 600 (0-900) /uL Eos # (Auto) 200 (0-450) /uL Baso # (Auto) 100 (0-100) /uL Sodium 141 (137-145) mmol/L Potassium 3.9 (3.4-5.1) mmol/L Chloride 103 (98-107) mmol/L Carbon Dioxide 24 (22-32) mmol/L BUN 11 (9-20) mg/dL Creatinine 0.95 (0.66-1.25) mg/dL Estimated GFR > 60 (>60) mL/min BUN/Creatinine Ratio 11.6 (6-22) Glucose 101 H (70-100) mg/dL Calcium 9.4 (8.4-10.2) mg/dL Total Bilirubin 0.4 (0.2-1.3) mg/dL AST 54 (17-59) IU/L ALT 50 H (<50) IU/L Alkaline Phosphatase 93 (38-126) U/L Total Protein 8.0 (6.3-8.2) g/dL Albumin 4.5 (3.5-5.0) g/dL Globulin 3.5 (1.7-4.1) g/dL Albumin/Globulin Ratio 1.3 (1.0-2.8) TSH 1.61 (0.47-4.68) uIU/mL Free T4 0.96 (0.78-2.19) ng/dL Salicylates < 1.0 (<20) mg/dL U Opiates 300ng/mL cut Negative (Negative) Ur Oxycodone Screen Negative (Negative) Urine Methadone Screen Negative (Negative) Acetaminophen < 10 (10-30) ug/mL Ur Barbiturates Screen Negative (Negative) U Tricyclic Antidepress Negative (Negative) Ur Phencyclidine Scrn Negative (Negative) Ur Amphetamines Screen Negative (Negative) U Methamphetamines Scrn Negative (Negative) Ur MDMA Scrn (Ecstasy) Negative (Negative) U Benzodiazepines Scrn Negative (Negative) Urine Cocaine Screen Negative (Negative) U Marijuana (THC) Screen Negative (Negative) Urine pH Normal (Normal) Urine Specific [place] Normal (Normal) Ethyl Alcohol < 10 ( - 10) mg/dL Ur Creatinine Normal (Normal) SARS-CoV-2 (PCR) Negative (Negative) Urine Dip Bedside Urine Glucose Negative Bedside Urine Bilirubin - Negative Bedside Urine Ketone - Negative Urine Specific [place] 1.030 Bedside Urine Occult Blood - Negative Bedside Urine pH 6 Bedside Urine Protein - Negative Bedside Urine Urobilinogen - Negative Bedside Urine Nitrite - Negative Bedside Urine Leukocytes - Negative Esterase Point of care testing: Urine Dip Bedside Urine Glucose Negative Bedside Urine Bilirubin - Negative Bedside Urine Ketone - Negative Urine Specific [place] 1.030 Bedside Urine Occult Blood - Negative Bedside Urine pH 6 Bedside Urine Protein - Negative Bedside Urine Urobilinogen - Negative Bedside Urine Nitrite - Negative Bedside Urine Leukocytes - Negative Esterase MDM Narrative Medical decision making narrative: CC: Schizoaffective bipolar type, increasing suicidal ideation, not taking medications, requesting help Complicating co-morbidities: Psychiatric hospital admission May 17 through . Has not been taking medications since discharge Data collected from: patient Social determinants of health that may influence the patients condition: Schizoaffective bipolar type, currently lives with his father Medical records reviewed: [facility] notes from recent hospital admission reviewed. Discharge medications are supposed to be risperidone 2 mg nightly. Divalproex 24 hour tablet 1 g nightly, Wellbutrin XL 150 mg daily, Invega Sustenna 234 mg monthly (notes indicate that his Invega is managed by outpatient doctors and was last given in early May) buspirone 5 mg 3 times daily Differential considered: Continued symptomatic schizoaffective bipolar type with increasing negative auditory hallucinations that are not command hallucinations. He is not having visual hallucinations. Has not been taking his medications Exam documented above, pertinent findings include: Patient is calm somewhat fearful but not responding to internal stimuli. Cooperates fully. Physical exam is benign Lab Test results independently reviewed as above. Pertinent findings: CBC is unremarkable Chemistries show no significant abnormalities Alcohol level is undetectable Salicylate and acetaminophen levels are undetectable Urine drug screen is negative COVID test is negative Consultations: Patient has been evaluated by our social services designee feels that he is a good cecy admit for suicidal ideation in the setting of schizoaffective disorder bipolar with medical noncompliance Treatments: He is given his nightly risperidone and divalproex. I believe it was 4 tablets of BuSpar that were taken tonight(which actually could be a therapeutic dose, certainly not a concerning overdose) if he remains here in the morning will add the Wellbutrin XL in the a.m.. Discussion: 23-year-old gentleman admitted to [facility] for similar complaints May 23. Has not been taking medication since. Likely is due for an Invega dose but I am unable to document when that actually needs to be given. Medically cleared at this time and [facility] has beds available. We will anticipate transfer to [facility] for additional treatment, voluntary placement 930 bed available at [facility], accepting doctor, Dr. Margarito Medina. Transport will be arranged Discharge Plan Departure Patient Disposition: Xfer Psychiatric Hosp Clinical Impression: Suicidal ideation, Schizoaffective disorder, bipolar type Prescriptions: No Action olanzapine 5 mg tablet 5 mg PO ONCE PM divalproex 500 mg tablet,delayed release (DR/EC) 1,000 mg PO BID bupropion HCl 150 mg tablet extended release 24 hr 150 mg PO QAM buspirone 5 mg tablet 5 mg PO 3XD risperidone 2 mg tablet 2 mg PO ONCE PM
[2023-06-22 19:40] LABS: UR Morphine/Opiate cutoff 300 Negative (Negative); Ur Creatinine Normal (Normal); Ur Specific Gravity Normal (Normal); Urine Amphetamines Negative (Negative); Urine Barbiturates Negative (Negative); Urine Benzodiazepines Negative (Negative); Urine Cocaine Negative (Negative); Urine MDMA Negative (Negative); Urine Methadone Negative (Negative); Urine Methamphetamines Negative (Negative); Urine Oxycodone Negative (Negative); Urine Phencyclidine Negative (Negative); Urine Tetrahydrocannabinol Negative (Negative); Urine Tricyclic Antidepressant Negative (Negative); Urine pH Normal (Normal)
[2023-06-22 19:42] LABS: Add Manual Diff / Slide Review NO; Basophils Absolute Auto 100 /uL (0-100); Basophils Percent Auto 0.6 % (0-2); Eosinophils Absolute Auto 200 /uL (0-450); Eosinophils Percent Auto 2.1 % (2-4); Hematocrit 41.8 % (41-53); Hemoglobin 14.4 g/dL (13.5-17.5); Lymphocytes Absolute Auto 2800 /uL (1100-4500); Lymphocytes Percent Auto 30.4 % (25-40); Mean Corpuscular HGB Conc 34.6 % (30-36); Mean Corpuscular Volume 86.7 fL (80-100); Monocytes Absolute Auto 600 /uL (0-900); Monocytes Percent Auto 6.8 % (3-14); Neutrophils Absolute Auto 5500 /uL (1500-7000); Neutrophils Percent Auto 60.1 % (50-75); Platelet Count 303 X10^3/uL (150-400); Red Blood Cell Count 4.81 X10^6/uL (4.5-5.9); Red Cell Distribution Width 13.7 % (11.6-14.8); White Blood Cell Count 9.1 X10^3/uL (4.5-11.0)
--- NOTE | 2023-06-22 19:49 | PC.NURSE ---
VALET CASHIER Note: Patient is looking around room, shaking head yes or no and smiling
[2023-06-22 19:54] LABS: Acetaminophen < 10 ug/mL (10-30); Alanine Aminotransferase 50 IU/L (<50); Albumin 4.5 g/dL (3.5-5.0); Albumin Globulin Ratio 1.3 (1.0-2.8); Alkaline Phosphatase 93 U/L (38-126); Aspartate Aminotransferase 54 IU/L (17-59); BUN Creatinine Ratio 11.6 (6-22); Bilirubin Total 0.4 mg/dL (0.2-1.3); Blood Urea Nitrogen 11 mg/dL (9-20); Calcium 9.4 mg/dL (8.4-10.2); Carbon Dioxide 24 mmol/L (22-32); Chloride 103 mmol/L (98-107); Estimated Glomerular Filt Rate > 60 mL/min (>60); Ethanol (ETOH) < 10 mg/dL; Globulin 3.5 g/dL (1.7-4.1); Glucose 101 mg/dL (70-100); HEMOLYSIS 24 (0-50); Potassium 3.9 mmol/L (3.4-5.1); Salicylate < 1.0 mg/dL (<20); Sodium 141 mmol/L (137-145)
[2023-06-22] MEDS: DIVALPROEX ER 250 MG TAB 1000 MG PO (20:12)
[2023-06-22] MEDS: risperiDONE 1 MG TABLET 2 MG PO (20:12)
[2023-06-22 20:16] LABS: COVID19 -Nasal RAPID Negative (Negative)
[2023-06-22 20:23] LABS: Free T4, Direct Thyroxine 0.96 ng/dL (0.78-2.19)
[2023-06-22 20:36] LABS: Thyroid Stimulating Hormone 1.61 uIU/mL (0.47-4.68)
--- NOTE | 2023-06-22 23:48 | PC.NURSE ---
Sat with patient starting at 2016. Patient calm & cooperative throughout the night. BLS transport picked up patient @ 1605. Belongings with transport team.
[2023-06-22 23:50] VITALS: BP 130/78; PULSE 108; RESP 18; O2SAT 99
== END 2023-06-22 23:52 ==
PROVIDERS: Emergency Provider Emergency Medicine
DX: R45.851 Suicidal ideations (principal); F25.0 Schizoaffective disorder, bipolar type; Z20.822 Contact with and (suspected) exposure to COVID-19
CPT/HCPCS: 80053; 80305; 80320; 80329; 81003; 84439; 84443; 85025; 87635; 99284; G0480

== ENCOUNTER 2023-07-12 23:06 | Emergency (ER) | payer MEDICARE, MEDICAID, SELFPAY ==
[2023-07-12 23:16] VITALS: BP 147/88; PULSE 99; RESP 16; TEMP 36.6; O2SAT 96; BMI 44.3
[2023-07-13 00:24] LABS: Add Manual Diff / Slide Review NO; Basophils Absolute Auto 100 /uL (0-100); Basophils Percent Auto 0.6 % (0-2); Eosinophils Absolute Auto 200 /uL (0-450); Hemoglobin 13.7 g/dL (13.5-17.5); Lymphocytes Absolute Auto 3400 /uL (1100-4500); Mean Corpuscular HGB Conc 34.2 % (30-36); Mean Corpuscular Hemoglobin 29.6 PG (26-34); Mean Corpuscular Volume 86.7 fL (80-100); Monocytes Absolute Auto 900 /uL (0-900); Monocytes Percent Auto 9.1 % (3-14); Neutrophils Absolute Auto 4900 /uL (1500-7000); Neutrophils Percent Auto 52.3 % (50-75); Platelet Count 272 X10^3/uL (150-400); Red Blood Cell Count 4.61 X10^6/uL (4.5-5.9); Red Cell Distribution Width 13.8 % (11.6-14.8); White Blood Cell Count 9.4 X10^3/uL (4.5-11.0)
--- NOTE | 2023-07-13 00:29 | ED.PSYCH ---
HPI - Psych <Barbara Lin MD - Last Filed: 07/13/23 07:05> General Chief Complaint: Psychiatric Symptoms Stated Complaint: mental health crisis Time Seen by Provider: 07/12/23 23:09 Source: patient Mode of arrival: Family Vehicle History of Present Illness HPI Narrative: 23-year-old male with history of schizophrenia, PTSD, very well known to this emergency department presents for psychiatric evaluation. Discharged on 07/06/2023 from [facility] after being admitted for 13 days. Patient presented to [facility] for worsening auditory hallucinations and suicidal ideations. Patient states that his voices have worsened. Makes vague statements to nursing staff that if he isn't in the hospital he may ?do something?. Related Data Home Medications Medication Instructions Recorded Confirmed bupropion HCl 150 mg 24 hr tablet, 150 mg PO QAM 03/18/23 06/22/23 extended release divalproex 500 mg tablet,delayed 1,000 mg PO BID 03/18/23 06/22/23 release olanzapine 5 mg tablet 5 mg PO ONCE PM 03/18/23 06/22/23 buspirone 5 mg tablet 5 mg PO 3XD anxiety 06/22/23 06/22/23 risperidone 2 mg tablet 2 mg PO ONCE PM 06/22/23 06/22/23 Allergies Allergy/AdvReac Type Severity Reaction Status Date / Time No Known Drug Allergies Allergy Verified 06/22/23 19:21 Review of Systems <Barbara Lin MD - Last Filed: 07/13/23 07:05> Review of Systems Narrative: otherwise negative Patient History <Barbara Lin MD - Last Filed: 07/13/23 07:05> Medical History Schizoaffective disorder, bipolar type Social History Smoking Status: Current every day smoker Smoking Status: Current every day smoker tobacco type: cigarettes and vaping Substance Use Type: does not use Exam <Barbara Lin MD - Last Filed: 07/13/23 07:05> Initial Vital Signs Initial Vital Signs: Vital Signs Temperature 97.8 F 07/12/23 23:16 Pulse Rate 99 H 07/12/23 23:16 Respiratory Rate 16 07/12/23 23:16 Blood Pressure 147/88 H 07/12/23 23:16 Pulse Oximetry 96 07/12/23 23:16 Oxygen Delivery Method Room Air 07/12/23 23:16 Const: Awake, alert, no acute distress, nontoxic appearing Cardiac: regular rate, regular rhythm RESP: unlabored, clear bilaterally, no wheezing GI: Atraumatic, soft, nontender, nondistended, no rebound, no guarding Skin: Warm, Dry, intact, no rashes Neuro: AO x3, CN II-XII grossly intact, moves all extremities Psych: Flat affect, poor eye contact, poor insight, poor judgement <Sher Vazquez DO - Last Filed: 07/13/23 08:51> Initial Vital Signs Initial Vital Signs: Vital Signs Temperature 97.8 F 07/12/23 23:16 Pulse Rate 99 H 07/12/23 23:16 Respiratory Rate 16 07/12/23 23:16 Blood Pressure 147/88 H 07/12/23 23:16 Pulse Oximetry 96 07/12/23 23:16 Oxygen Delivery Method Room Air 07/12/23 23:16 Course <Barbara Lin MD - Last Filed: 07/13/23 07:05> Orders Ordered: ED Orders 07/13/23 00:05 COVID19 -Nasal RAPID Stat 07/13/23 00:45 UA Complete [Urinalysis and Microscopic] Stat Urine Drug Screen, Rapid Stat 07/13/23 01:16 Consult to [facility] Predictive Maintenance Technician Stat Vital Signs Vital signs: Vital Signs - 8 hr 07/13/23 06:45 07/13/23 07:20 Pulse Rate 78 Respiratory Rate 16 Blood Pressure 115/62 Pulse Oximetry 99 Oxygen Delivery Method Room Air <Sher Vazquez DO - Last Filed: 07/13/23 08:51> Orders Ordered: ED Orders 07/13/23 00:05 COVID19 -Nasal RAPID Stat 07/13/23 00:45 UA Complete [Urinalysis and Microscopic] Stat Urine Drug Screen, Rapid Stat 07/13/23 01:16 Consult to [facility] Predictive Maintenance Technician Stat Vital Signs Vital signs: Vital Signs - 8 hr 07/13/23 06:45 07/13/23 07:20 Pulse Rate 78 Respiratory Rate 16 Blood Pressure 115/62 Pulse Oximetry 99 Oxygen Delivery Method Room Air [facility] Psych <Barbara Lin MD - Last Filed: 07/13/23 07:05> Lab Data 07/13/23 00:16 07/13/23 00:16 Labs: Lab Results 07/13/23 07/13/23 07/13/23 Range/Units 00:05 00:16 00:45 WBC 9.4 (4.5-11.0) X10^3/uL RBC 4.61 (4.5-5.9) X10^6/uL Hgb 13.7 (13.5-17.5) g/dL Hct 40.0 L (41-53) % MCV 86.7 (80-100) fL MCH 29.6 (26-34) PG MCHC 34.2 (30-36) % RDW 13.8 (11.6-14.8) % Plt Count 272 (150-400) X10^3/uL Neut % (Auto) 52.3 (50-75) % Lymph % (Auto) 36.0 (25-40) % [place] % (Auto) 9.1 (3-14) % Eos % (Auto) 2.0 (2-4) % Baso % (Auto) 0.6 (0-2) % Neut # (Auto) 4900 (5051-2223) /uL Lymph # (Auto) 3400 (1296-2914) /uL [place] # (Auto) 900 (0-900) /uL Eos # (Auto) 200 (0-450) /uL Baso # (Auto) 100 (0-100) /uL Sodium 137 (137-145) mmol/L Potassium 4.0 (3.4-5.1) mmol/L Chloride 103 (98-107) mmol/L Carbon Dioxide 26 (22-32) mmol/L BUN 13 (9-20) mg/dL Creatinine 1.09 (0.66-1.25) mg/dL Estimated GFR > 60 (>60) mL/min BUN/Creatinine Ratio 11.9 (6-22) Glucose 92 (70-100) mg/dL Calcium 9.4 (8.4-10.2) mg/dL Total Bilirubin 0.4 (0.2-1.3) mg/dL AST 40 (17-59) IU/L ALT 35 (<50) IU/L Alkaline Phosphatase 85 (38-126) U/L Total Protein 7.6 (6.3-8.2) g/dL Albumin 4.2 (3.5-5.0) g/dL Globulin 3.4 (1.7-4.1) g/dL Albumin/Globulin Ratio 1.2 (1.0-2.8) Urine Color Yellow Urine Appearance Clear Urine pH 5.5 (4.5-8.0) Ur Specific [place] 1.025 (1.000-1.035) Urine Protein Negative (Negative) Urine Glucose (UA) Negative (Negative) g/dL Urine Ketones 1+ H (NEGATIVE) Urine Occult Blood Negative (Negative) Urine Nitrate Negative (Negative) Urine Bilirubin Negative (NEGATIVE) Urine Urobilinogen 0.2 (0.2) E.U./dL Ur Leukocyte Esterase Negative (NEGATIVE) Urine RBC None seen (0-5/HPF) Urine WBC None seen (0-5/HPF) Ur Squamous Epith Cells 0-1 /hpf (0-5/HPF) Urine Bacteria None seen (None) Ur Culture Indicated? Cult not indicated Vol Urine Centrifuged 10ml (spun) Salicylates < 1.0 (<20) mg/dL U Opiates 300ng/mL cut Negative (Negative) Ur Oxycodone Screen Negative (Negative) Urine Methadone Screen Negative (Negative) Acetaminophen < 10 (10-30) ug/mL Ur Barbiturates Screen Negative (Negative) U Tricyclic Antidepress Negative (Negative) Ur Phencyclidine Scrn Negative (Negative) Ur Amphetamines Screen Negative (Negative) U Methamphetamines Scrn Negative (Negative) Ur MDMA Scrn (Ecstasy) Negative (Negative) U Benzodiazepines Scrn Negative (Negative) Urine Cocaine Screen Negative (Negative) U Marijuana (THC) Screen Negative (Negative) Urine Specific [place] Ethyl Alcohol < 10 ( - 10) mg/dL Ur Creatinine SARS-CoV-2 (PCR) Negative (Negative) 07/13/23 Range/Units 00:45 WBC (4.5-11.0) X10^3/uL RBC (4.5-5.9) X10^6/uL Hgb (13.5-17.5) g/dL Hct (41-53) % MCV (80-100) fL MCH (26-34) PG MCHC (30-36) % RDW (11.6-14.8) % Plt Count (150-400) X10^3/uL Neut % (Auto) (50-75) % Lymph % (Auto) (25-40) % [place] % (Auto) (3-14) % Eos % (Auto) (2-4) % Baso % (Auto) (0-2) % Neut # (Auto) (8000-4077) /uL Lymph # (Auto) (8653-7973) /uL [place] # (Auto) (0-900) /uL Eos # (Auto) (0-450) /uL Baso # (Auto) (0-100) /uL Sodium (137-145) mmol/L Potassium (3.4-5.1) mmol/L Chloride (98-107) mmol/L Carbon Dioxide (22-32) mmol/L BUN (9-20) mg/dL Creatinine (0.66-1.25) mg/dL Estimated GFR (>60) mL/min BUN/Creatinine Ratio (6-22) Glucose (70-100) mg/dL Calcium (8.4-10.2) mg/dL Total Bilirubin (0.2-1.3) mg/dL AST (17-59) IU/L ALT (<50) IU/L Alkaline Phosphatase (38-126) U/L Total Protein (6.3-8.2) g/dL Albumin (3.5-5.0) g/dL Globulin (1.7-4.1) g/dL Albumin/Globulin Ratio (1.0-2.8) Urine Color Urine Appearance Urine pH Not Reportable (4.5-8.0) Ur Specific [place] (1.000-1.035) Urine Protein (Negative) Urine Glucose (UA) (Negative) g/dL Urine Ketones (NEGATIVE) Urine Occult Blood (Negative) Urine Nitrate (Negative) Urine Bilirubin (NEGATIVE) Urine Urobilinogen (0.2) E.U./dL Ur Leukocyte Esterase (NEGATIVE) Urine RBC (0-5/HPF) Urine WBC (0-5/HPF) Ur Squamous Epith Cells (0-5/HPF) Urine Bacteria (None) Ur Culture Indicated? Vol Urine Centrifuged Salicylates (<20) mg/dL U Opiates 300ng/mL cut (Negative) Ur Oxycodone Screen (Negative) Urine Methadone Screen (Negative) Acetaminophen (10-30) ug/mL Ur Barbiturates Screen (Negative) U Tricyclic Antidepress (Negative) Ur Phencyclidine Scrn (Negative) Ur Amphetamines Screen (Negative) U Methamphetamines Scrn (Negative) Ur MDMA Scrn (Ecstasy) (Negative) U Benzodiazepines Scrn (Negative) Urine Cocaine Screen (Negative) U Marijuana (THC) Screen (Negative) Urine Specific [place] Not Reportable Ethyl Alcohol ( - 10) mg/dL Ur Creatinine Not Reportable SARS-CoV-2 (PCR) (Negative) MDM Narrative Medical decision making narrative: Worsening auditory hallucinations. Denies formal suicidal plan or ideations but is concerned if he does not receive inpatient treatment that he may be at risk. Labs unremarkable. Medically cleared. Will consult social work to see in AM Patient monitored all night, no issues, slept without incident. Care of patient signed to Dr. Vazquez at 0700 <Sher Vazquez, DO - Last Filed: 07/13/23 08:51> Lab Data Labs: Lab Results 07/13/23 07/13/23 07/13/23 Range/Units 00:05 00:16 00:45 WBC 9.4 (4.5-11.0) X10^3/uL RBC 4.61 (4.5-5.9) X10^6/uL Hgb 13.7 (13.5-17.5) g/dL Hct 40.0 L (41-53) % MCV 86.7 (80-100) fL MCH 29.6 (26-34) PG MCHC 34.2 (30-36) % RDW 13.8 (11.6-14.8) % Plt Count 272 (150-400) X10^3/uL Neut % (Auto) 52.3 (50-75) % Lymph % (Auto) 36.0 (25-40) % [place] % (Auto) 9.1 (3-14) % Eos % (Auto) 2.0 (2-4) % Baso % (Auto) 0.6 (0-2) % Neut # (Auto) 4900 (5543-7069) /uL Lymph # (Auto) 3400 (3406-4208) /uL [place] # (Auto) 900 (0-900) /uL Eos # (Auto) 200 (0-450) /uL Baso # (Auto) 100 (0-100) /uL Sodium 137 (137-145) mmol/L Potassium 4.0 (3.4-5.1) mmol/L Chloride 103 (98-107) mmol/L Carbon Dioxide 26 (22-32) mmol/L BUN 13 (9-20) mg/dL Creatinine 1.09 (0.66-1.25) mg/dL Estimated GFR > 60 (>60) mL/min BUN/Creatinine Ratio 11.9 (6-22) Glucose 92 (70-100) mg/dL Calcium 9.4 (8.4-10.2) mg/dL Total Bilirubin 0.4 (0.2-1.3) mg/dL AST 40 (17-59) IU/L ALT 35 (<50) IU/L Alkaline Phosphatase 85 (38-126) U/L Total Protein 7.6 (6.3-8.2) g/dL Albumin 4.2 (3.5-5.0) g/dL Globulin 3.4 (1.7-4.1) g/dL Albumin/Globulin Ratio 1.2 (1.0-2.8) Urine Color Yellow Urine Appearance Clear Urine pH 5.5 (4.5-8.0) Ur Specific [place] 1.025 (1.000-1.035) Urine Protein Negative (Negative) Urine Glucose (UA) Negative (Negative) g/dL Urine Ketones 1+ H (NEGATIVE) Urine Occult Blood Negative (Negative) Urine Nitrate Negative (Negative) Urine Bilirubin Negative (NEGATIVE) Urine Urobilinogen 0.2 (0.2) E.U./dL Ur Leukocyte Esterase Negative (NEGATIVE) Urine RBC None seen (0-5/HPF) Urine WBC None seen (0-5/HPF) Ur Squamous Epith Cells 0-1 /hpf (0-5/HPF) Urine Bacteria None seen (None) Ur Culture Indicated? Cult not indicated Vol Urine Centrifuged 10ml (spun) Salicylates < 1.0 (<20) mg/dL U Opiates 300ng/mL cut Negative (Negative) Ur Oxycodone Screen Negative (Negative) Urine Methadone Screen Negative (Negative) Acetaminophen < 10 (10-30) ug/mL Ur Barbiturates Screen Negative (Negative) U Tricyclic Antidepress Negative (Negative) Ur Phencyclidine Scrn Negative (Negative) Ur Amphetamines Screen Negative (Negative) U Methamphetamines Scrn Negative (Negative) Ur MDMA Scrn (Ecstasy) Negative (Negative) U Benzodiazepines Scrn Negative (Negative) Urine Cocaine Screen Negative (Negative) U Marijuana (THC) Screen Negative (Negative) Urine Specific [place] Ethyl Alcohol < 10 ( - 10) mg/dL Ur Creatinine SARS-CoV-2 (PCR) Negative (Negative) 07/13/23 Range/Units 00:45 WBC (4.5-11.0) X10^3/uL RBC (4.5-5.9) X10^6/uL Hgb (13.5-17.5) g/dL Hct (41-53) % MCV (80-100) fL MCH (26-34) PG MCHC (30-36) % RDW (11.6-14.8) % Plt Count (150-400) X10^3/uL Neut % (Auto) (50-75) % Lymph % (Auto) (25-40) % [place] % (Auto) (3-14) % Eos % (Auto) (2-4) % Baso % (Auto) (0-2) % Neut # (Auto) (0975-2737) /uL Lymph # (Auto) (4242-8450) /uL [place] # (Auto) (0-900) /uL Eos # (Auto) (0-450) /uL Baso # (Auto) (0-100) /uL Sodium (137-145) mmol/L Potassium (3.4-5.1) mmol/L Chloride (98-107) mmol/L Carbon Dioxide (22-32) mmol/L BUN (9-20) mg/dL Creatinine (0.66-1.25) mg/dL Estimated GFR (>60) mL/min BUN/Creatinine Ratio (6-22) Glucose (70-100) mg/dL Calcium (8.4-10.2) mg/dL Total Bilirubin (0.2-1.3) mg/dL AST (17-59) IU/L ALT (<50) IU/L Alkaline Phosphatase (38-126) U/L Total Protein (6.3-8.2) g/dL Albumin (3.5-5.0) g/dL Globulin (1.7-4.1) g/dL Albumin/Globulin Ratio (1.0-2.8) Urine Color Urine Appearance Urine pH Not Reportable (4.5-8.0) Ur Specific [place] (1.000-1.035) Urine Protein (Negative) Urine Glucose (UA) (Negative) g/dL Urine Ketones (NEGATIVE) Urine Occult Blood (Negative) Urine Nitrate (Negative) Urine Bilirubin (NEGATIVE) Urine Urobilinogen (0.2) E.U./dL Ur Leukocyte Esterase (NEGATIVE) Urine RBC (0-5/HPF) Urine WBC (0-5/HPF) Ur Squamous Epith Cells (0-5/HPF) Urine Bacteria (None) Ur Culture Indicated? Vol Urine Centrifuged Salicylates (<20) mg/dL U Opiates 300ng/mL cut (Negative) Ur Oxycodone Screen (Negative) Urine Methadone Screen (Negative) Acetaminophen (10-30) ug/mL Ur Barbiturates Screen (Negative) U Tricyclic Antidepress (Negative) Ur Phencyclidine Scrn (Negative) Ur Amphetamines Screen (Negative) U Methamphetamines Scrn (Negative) Ur MDMA Scrn (Ecstasy) (Negative) U Benzodiazepines Scrn (Negative) Urine Cocaine Screen (Negative) U Marijuana (THC) Screen (Negative) Urine Specific [place] Not Reportable Ethyl Alcohol ( - 10) mg/dL Ur Creatinine Not Reportable SARS-CoV-2 (PCR) (Negative) MDM Narrative Medical decision making narrative: Worsening auditory hallucinations. Denies formal suicidal plan or ideations but is concerned if he does not receive inpatient treatment that he may be at risk. Labs unremarkable. Medically cleared. Will consult social work to see in AM Patient monitored all night, no issues, slept without incident. Care of patient signed to Dr. Vazquez at 0700 Dr Vazquez: Received turned over. Reviewed patient's history and physical. Patient is medically cleared. Initial turned over was that the patient was voluntary seeking inpatient treatment. At approximately 0850 in the morning patient stated that he would like to go home. I evaluated him. Patient states he has not homicidal. He occasionally has thoughts of suicide but states he feels safe at home. States he would not act on any of these thoughts. States he would return to the emergency department of the thoughts became more persistent or worse. He would like to go home. He is alert and oriented x3. My opinion has capacity to make decisions. States he still occasionally is having hallucinations. He states he would like to go home to be with his dad who lives here locally. No indication for involuntary admission. Given return. He expressed understanding and agreement. He states he does not need a refill of any of his medications. Discharge Plan Departure Patient Disposition: Home Clinical Impression: Chronic schizophrenia Instructions: DI for Schizophrenia Activity Restrictions/Additional Instructions: It is important that you continue to take all of your medications and keep all of your scheduled medical appointments. Return to the emergency department for new or worsening symptoms. Prescriptions: No Action olanzapine 5 mg tablet 5 mg PO ONCE PM divalproex 500 mg tablet,delayed release (DR/EC) 1,000 mg PO BID bupropion HCl 150 mg tablet extended release 24 hr 150 mg PO QAM buspirone 5 mg tablet 5 mg PO 3XD risperidone 2 mg tablet 2 mg PO ONCE PM Stand Alone Forms: Patient Portal/API
[2023-07-13 00:39] LABS: Acetaminophen < 10 ug/mL (10-30); Alanine Aminotransferase 35 IU/L (<50); Albumin 4.2 g/dL (3.5-5.0); Albumin Globulin Ratio 1.2 (1.0-2.8); Alkaline Phosphatase 85 U/L (38-126); Aspartate Aminotransferase 40 IU/L (17-59); BUN Creatinine Ratio 11.9 (6-22); Bilirubin Total 0.4 mg/dL (0.2-1.3); Blood Urea Nitrogen 13 mg/dL (9-20); Calcium 9.4 mg/dL (8.4-10.2); Carbon Dioxide 26 mmol/L (22-32); Chloride 103 mmol/L (98-107); Estimated Glomerular Filt Rate > 60 mL/min (>60); Ethanol (ETOH) < 10 mg/dL; Globulin 3.4 g/dL (1.7-4.1); Glucose 92 mg/dL (70-100); HEMOLYSIS < 15 (0-50); Salicylate < 1.0 mg/dL (<20); Sodium 137 mmol/L (137-145); Total Protein 7.6 g/dL (6.3-8.2)
[2023-07-13 00:51] LABS: COVID19 -Nasal RAPID Negative (Negative)
[2023-07-13 01:47] LABS: Appearance Urine UA CLEAR; Bilirubin Urine UA NEGATIVE (NEGATIVE); Color Urine UA YELLOW; Glucose Urine UA NEGATIVE (Negative); Ketones Urine UA 1+ (NEGATIVE); Leukocyte Esterase Urine UA NEGATIVE (NEGATIVE); Nitrite Urine UA NEGATIVE (Negative); Occult Blood Urine UA NEGATIVE (Negative); Protein Urine UA NEGATIVE (Negative); Specific Gravity Urine UA 1.025 (1.000-1.035); Urobilinogen Urine UA 0.2 E.U./dL (0.2); pH Urine UA 5.5 (4.5-8.0)
[2023-07-13 01:56] LABS: Bacteria Urine None Seen; Culture Indicated Urine Cult Not Indicated; RBC Urine None Seen (0-5/HPF); Squamous Epithelial Cell Urine 0-1 /HPF (0-5/HPF); UR Morphine/Opiate cutoff 300 Negative (Negative); Urine Amphetamines Negative (Negative); Urine Barbiturates Negative (Negative); Urine Benzodiazepines Negative (Negative); Urine Cocaine Negative (Negative); Urine MDMA Negative (Negative); Urine Methadone Negative (Negative); Urine Methamphetamines Negative (Negative); Urine Oxycodone Negative (Negative); Urine Phencyclidine Negative (Negative); Urine Tetrahydrocannabinol Negative (Negative); Urine Tricyclic Antidepressant Negative (Negative); Urine Volume 10mL (spun); WBC Urine None Seen (0-5/HPF)
--- NOTE | 2023-07-13 06:18 | PC.NURSE ---
FEED MIXER note: Sent a packet to [facility]. Had called earlier in this shift asking about possible records for patient. Patient wanted to go there, so I sent a packet with the doctor's report and face sheet. office helper clerical knows. Patient is being monitored. He is sleeping in bed.
[2023-07-13 06:45] VITALS: BP 115/62; PULSE 78; O2SAT 99
[2023-07-13 07:20] VITALS: RESP 16
--- NOTE | 2023-07-13 07:20 | PC.NURSE ---
Pt is laying in bed on his left side, snoring with chest rise and fall observed. Pt covered in blankets, side rail up for safety.
--- NOTE | 2023-07-13 08:42 | PC.NURSE ---
Pt laying in bed when I went to check on him. I introduced myself and asked how he is doing. Pt states I'm ready to go now. I asked him what had changed his mind and pt reports I just needed to sleep. He currently denies hearing voices or having hallucinations. Patient denies SI/HI. I asked him if he had a safe place to go and where he lives. He says he lives at home with his dad here in town and is safe at home. I asked him if he needed a ride and pt responds no, I can walk. Pt did not eat breakfast tray at bedside stating he isnt hungry. Provider notified.
[2023-07-13 09:03] VITALS: BP 139/80; PULSE 102; RESP 16; O2SAT 95
== END 2023-07-13 09:03 | disposition home or self-care (01) ==
PROVIDERS: Emergency Medicine; Emergency Provider Emergency Medicine
DX: F20.9 Schizophrenia, unspecified (principal); Z20.822 Contact with and (suspected) exposure to COVID-19
CPT/HCPCS: 36415; 80053; 80305; 80320; 80329; 81001; 85025; 87635; 99284; G0480

== ENCOUNTER 2023-07-16 18:52 | Emergency (ER) | payer MEDICARE, MEDICAID, OTHER, SELFPAY ==
[2023-07-16 19:09] VITALS: BP 146/81; PULSE 98; RESP 18; TEMP 36.4; O2SAT 96; BMI 45.6
[2023-07-16] MEDS: ACETAMINOPHEN 325 MG TABLET 975 MG PO (19:33)
[2023-07-16] MEDS: hydrOXYzine HCL 25 MG TABLET 50 MG PO (19:34)
--- NOTE | 2023-07-16 20:00 | PC.NURSE ---
Pt has been seen 3 prior times to this visit for similar symptoms. Pt states that at this time he his having too much pain in his head that is causing him to have thoughts to overdose on his pills to stop the pain. Detailed discussion with pt about his coping skills. At this time he utilizes reading the bible, prayer. These have not worked for him at this time. Pt states that he has also tried to do breathing exercises without relief. Pt is here today hoping to have treatment for his major depressive state with anxious thoughts.
[2023-07-16 20:04] LABS: Ur Creatinine Normal (Normal); Ur Specific Gravity Normal (Normal); Urine pH Normal (Normal)
[2023-07-16 20:05] LABS: UR Morphine/Opiate cutoff 300 Negative (Negative); Urine Amphetamines Negative (Negative); Urine Barbiturates Negative (Negative); Urine Benzodiazepines Negative (Negative); Urine Cocaine Negative (Negative); Urine MDMA Negative (Negative); Urine Methadone Negative (Negative); Urine Methamphetamines Negative (Negative); Urine Oxycodone Negative (Negative); Urine Phencyclidine Negative (Negative); Urine Tetrahydrocannabinol Negative (Negative); Urine Tricyclic Antidepressant Negative (Negative)
[2023-07-16 20:17] LABS: Add Manual Diff / Slide Review NO; Basophils Absolute Auto 0 /uL (0-100); Basophils Percent Auto 0.6 % (0-2); Eosinophils Absolute Auto 200 /uL (0-450); Hematocrit 39.8 % (41-53); Hemoglobin 13.6 g/dL (13.5-17.5); Lymphocytes Absolute Auto 2500 /uL (1100-4500); Lymphocytes Percent Auto 31.8 % (25-40); Mean Corpuscular HGB Conc 34.2 % (30-36); Mean Corpuscular Hemoglobin 29.7 PG (26-34); Mean Corpuscular Volume 86.9 fL (80-100); Monocytes Absolute Auto 700 /uL (0-900); Monocytes Percent Auto 8.3 % (3-14); Neutrophils Absolute Auto 4600 /uL (1500-7000); Neutrophils Percent Auto 57.3 % (50-75); Platelet Count 269 X10^3/uL (150-400); Red Blood Cell Count 4.58 X10^6/uL (4.5-5.9); Red Cell Distribution Width 14.1 % (11.6-14.8)
[2023-07-16 20:20] LABS: Acetaminophen < 10 ug/mL (10-30); Alanine Aminotransferase 35 IU/L (<50); Albumin 4.4 g/dL (3.5-5.0); Albumin Globulin Ratio 1.3 (1.0-2.8); Alkaline Phosphatase 81 U/L (38-126); Aspartate Aminotransferase 59 IU/L (17-59); BUN Creatinine Ratio 13.6 (6-22); Bilirubin Total 0.3 mg/dL (0.2-1.3); Blood Urea Nitrogen 15 mg/dL (9-20); Calcium 9.4 mg/dL (8.4-10.2); Carbon Dioxide 25 mmol/L (22-32); Chloride 104 mmol/L (98-107); Estimated Glomerular Filt Rate > 60 mL/min (>60); Ethanol (ETOH) < 10 mg/dL; Globulin 3.5 g/dL (1.7-4.1); Glucose 95 mg/dL (70-100); HEMOLYSIS < 15 (0-50); Potassium 3.8 mmol/L (3.4-5.1); Salicylate < 1.0 mg/dL (<20); Sodium 139 mmol/L (137-145); Total Protein 7.9 g/dL (6.3-8.2)
[2023-07-16 20:23] LABS: COVID19 -Nasal RAPID Negative (Negative)
[2023-07-16 20:27] LABS: Appearance Urine UA CLEAR; Bilirubin Urine UA NEGATIVE (NEGATIVE); Color Urine UA YELLOW; Glucose Urine UA NEGATIVE (Negative); Ketones Urine UA NEGATIVE (NEGATIVE); Leukocyte Esterase Urine UA NEGATIVE (NEGATIVE); Nitrite Urine UA NEGATIVE (Negative); Occult Blood Urine UA NEGATIVE (Negative); Protein Urine UA TRACE (Negative); Urobilinogen Urine UA 0.2 E.U./dL (0.2); pH Urine UA 7.5 (4.5-8.0)
[2023-07-16 20:41] LABS: Free T4, Direct Thyroxine 0.87 ng/dL (0.78-2.19)
[2023-07-16 20:44] LABS: RBC Urine None Seen (0-5/HPF); Urine Volume 10mL (spun); WBC Urine None Seen (0-5/HPF)
[2023-07-16 20:45] LABS: Bacteria Urine None Seen; Culture Indicated Urine Cult Not Indicated; Squamous Epithelial Cell Urine None Seen (0-5/HPF)
[2023-07-16 20:55] LABS: Thyroid Stimulating Hormone 4.25 uIU/mL (0.47-4.68)
[2023-07-16 22:50] VITALS: BP 135/65; PULSE 59; RESP 17; TEMP 36.5; O2SAT 96
--- NOTE | 2023-07-17 06:41 | ED.PSYCH ---
HPI - Psych <Jed Becker MD - Last Filed: 07/25/23 07:18> General Chief Complaint: Psychiatric Symptoms Stated Complaint: SI, Insomiac Time Seen by Provider: 07/16/23 19:29 Source: patient Mode of arrival: Ambulatory History of Present Illness HPI Narrative: 23-year-old male with a history of schizophrenia or schizoaffective affective disorder with a frequent visitor to this department and recently had an extended stay at the [facility]. He presents today complaining of suicidal ideation. He has not able to elaborate a specific plan, he does however report having significant auditory hallucinations. Patient states that he has been taking his medications and not using recreational drugs. Also denies alcohol use. Says that he has headaches and total body pain which she attributes to the medications that he is on. He has not having fevers nausea or vomiting. Related Data Home Medications Medication Instructions Recorded Confirmed bupropion HCl 150 mg 24 hr tablet, 150 mg PO QAM 03/18/23 07/17/23 extended release divalproex 500 mg tablet,delayed 1,000 mg PO QPM 03/18/23 07/17/23 release buspirone 5 mg tablet 5 mg PO 3XD PRN anxiety 06/22/23 07/17/23 risperidone 2 mg tablet 2 mg PO DAILY 07/17/23 07/17/23 risperidone 3 mg tablet 3 mg PO ONCE PM 07/17/23 07/17/23 Allergies Allergy/AdvReac Type Severity Reaction Status Date / Time No Known Drug Allergies Allergy Verified 07/17/23 11:22 Patient History <Jed Becker MD - Last Filed: 07/25/23 07:18> Medical History Schizoaffective disorder, bipolar type Social History Smoking Status: Current every day smoker Smoking Status: Current every day smoker tobacco type: cigarettes and vaping Substance Use Type: does not use Exam <Jed Becker MD - Last Filed: 07/25/23 07:18> Initial Vital Signs Initial Vital Signs: Vital Signs Temperature 97.6 F 07/16/23 19:09 Pulse Rate 98 H 07/16/23 19:09 Respiratory Rate 18 07/16/23 19:09 Blood Pressure 146/81 H 07/16/23 19:09 Pulse Oximetry 96 07/16/23 19:09 Oxygen Delivery Method Room Air 07/16/23 19:09 Const General: cooperative and No acute distress HENMT Head: normocephalic and atraumatic Resp Effort & Inspection: normal respiratory effort Auscultation: clear to auscultation bilaterally Cardio Other: Regular rhythm rate no murmur rub or gallop Skin General: no rashes or lesions noted Neuro General: patient awake and patient oriented x3 Psych Other: Somewhat disheveled, endorsing hallucinations, thought content is abnormal with suicidal ideation the patient is cooperative <Barbara Arroyo DO - Last Filed: 07/17/23 19:40> Initial Vital Signs Initial Vital Signs: Vital Signs Temperature 97.6 F 07/16/23 19:09 Pulse Rate 98 H 07/16/23 19:09 Respiratory Rate 18 07/16/23 19:09 Blood Pressure 146/81 H 07/16/23 19:09 Pulse Oximetry 96 07/16/23 19:09 Oxygen Delivery Method Room Air 07/16/23 19:09 Course <Jed Becker MD - Last Filed: 07/25/23 07:18> Orders Ordered: Discontinued Medications Acetaminophen (Acetaminophen 325 Mg Tablet) 975 mg PO NOW ONE Stop: 07/16/23 19:28 Last Admin: 07/16/23 19:33 Dose: 975 mg Documented By: Acetaminophen (Acetaminophen 325 Mg Tablet) 975 mg PO NOW ONE Stop: 07/17/23 11:29 Last Admin: 07/17/23 11:38 Dose: 975 mg Documented By: BRAD Buspirone HCl (Buspirone 5 Mg Tablet) 5 mg PO NOW ONE Stop: 07/17/23 11:29 Last Admin: 07/17/23 11:43 Dose: Not Given Documented By: BRAD Hydroxyzine HCl (Hydroxyzine Hcl 25 Mg Tablet) 50 mg PO NOW ONE Stop: 07/16/23 19:28 Last Admin: 07/16/23 19:34 Dose: 50 mg Documented By: Hydroxyzine HCl (Hydroxyzine Hcl 25 Mg Tablet) 50 mg PO NOW ONE Stop: 07/17/23 11:29 Last Admin: 07/17/23 11:38 Dose: 50 mg Documented By: BRAD Hydroxyzine HCl (Hydroxyzine Hcl 25 Mg Tablet) 50 mg PO NOW ONE Stop: 07/17/23 16:18 Last Admin: 07/17/23 16:20 Dose: 50 mg Documented By: СЕРГЕЙ Risperidone (Risperidone 1 Mg Tablet) 2 mg PO NOW ONE Stop: 07/17/23 11:30 Last Admin: 07/17/23 11:43 Dose: Not Given Documented By: BRAD Vital Signs Vital signs: Vital Signs - 8 hr 07/17/23 12:12 07/17/23 14:50 Temperature 97.9 F 98.9 F Pulse Rate 76 80 Respiratory Rate 18 18 Blood Pressure [Left Arm] 142/67 H 148/65 H Pulse Oximetry 94 93 Oxygen Delivery Method Room Air Room Air <Barbara Arroyo DO - Last Filed: 07/17/23 19:40> Orders Ordered: Discontinued Medications Acetaminophen (Acetaminophen 325 Mg Tablet) 975 mg PO NOW ONE Stop: 07/16/23 19:28 Last Admin: 07/16/23 19:33 Dose: 975 mg Documented By: Acetaminophen (Acetaminophen 325 Mg Tablet) 975 mg PO NOW ONE Stop: 07/17/23 11:29 Last Admin: 07/17/23 11:38 Dose: 975 mg Documented By: BRAD Buspirone HCl (Buspirone 5 Mg Tablet) 5 mg PO NOW ONE Stop: 07/17/23 11:29 Last Admin: 07/17/23 11:43 Dose: Not Given Documented By: BRAD Hydroxyzine HCl (Hydroxyzine Hcl 25 Mg Tablet) 50 mg PO NOW ONE Stop: 07/16/23 19:28 Last Admin: 07/16/23 19:34 Dose: 50 mg Documented By: Hydroxyzine HCl (Hydroxyzine Hcl 25 Mg Tablet) 50 mg PO NOW ONE Stop: 07/17/23 11:29 Last Admin: 07/17/23 11:38 Dose: 50 mg Documented By: BRAD Hydroxyzine HCl (Hydroxyzine Hcl 25 Mg Tablet) 50 mg PO NOW ONE Stop: 07/17/23 16:18 Last Admin: 07/17/23 16:20 Dose: 50 mg Documented By: СЕРГЕЙ Risperidone (Risperidone 1 Mg Tablet) 2 mg PO NOW ONE Stop: 07/17/23 11:30 Last Admin: 07/17/23 11:43 Dose: Not Given Documented By: BARD Vital Signs Vital signs: Vital Signs - 8 hr 07/17/23 12:12 07/17/23 14:50 Temperature 97.9 F 98.9 F Pulse Rate 76 80 Respiratory Rate 18 18 Blood Pressure [Left Arm] 142/67 H 148/65 H Pulse Oximetry 94 93 Oxygen Delivery Method Room Air Room Air MDM - Psych <Jed Becker MD - Last Filed: 07/25/23 07:18> Lab Data Lab results narrative: U tox is negative, alcohol is negative, TSH is normal CBC and CMP are unremarkable 07/16/23 19:58 07/16/23 19:58 Labs: Lab Results 07/16/23 07/16/23 07/16/23 Range/Units 19:28 19:28 19:45 WBC (4.5-11.0) X10^3/uL RBC (4.5-5.9) X10^6/uL Hgb (13.5-17.5) g/dL Hct (41-53) % MCV (80-100) fL MCH (26-34) PG MCHC (30-36) % RDW (11.6-14.8) % Plt Count (150-400) X10^3/uL Neut % (Auto) (50-75) % Lymph % (Auto) (25-40) % [place] % (Auto) (3-14) % Eos % (Auto) (2-4) % Baso % (Auto) (0-2) % Neut # (Auto) (0496-2902) /uL Lymph # (Auto) (2627-1359) /uL [place] # (Auto) (0-900) /uL Eos # (Auto) (0-450) /uL Baso # (Auto) (0-100) /uL Sodium (137-145) mmol/L Potassium (3.4-5.1) mmol/L Chloride (98-107) mmol/L Carbon Dioxide (22-32) mmol/L BUN (9-20) mg/dL Creatinine (0.66-1.25) mg/dL Estimated GFR (>60) mL/min BUN/Creatinine Ratio (6-22) Glucose (70-100) mg/dL Calcium (8.4-10.2) mg/dL Total Bilirubin (0.2-1.3) mg/dL AST (17-59) IU/L ALT (<50) IU/L Alkaline Phosphatase (38-126) U/L Total Protein (6.3-8.2) g/dL Albumin (3.5-5.0) g/dL Globulin (1.7-4.1) g/dL Albumin/Globulin Ratio (1.0-2.8) TSH (0.47-4.68) uIU/mL Free T4 (0.78-2.19) ng/dL Urine Color Yellow Urine Appearance Clear Urine pH 7.5 Normal (4.5-8.0) Ur Specific [place] 1.020 (1.000-1.035) Urine Protein Trace H (Negative) Urine Glucose (UA) Negative (Negative) g/dL Urine Ketones Negative (NEGATIVE) Urine Occult Blood Negative (Negative) Urine Nitrate Negative (Negative) Urine Bilirubin Negative (NEGATIVE) Urine Urobilinogen 0.2 (0.2) E.U./dL Ur Leukocyte Esterase Negative (NEGATIVE) Urine RBC None seen (0-5/HPF) Urine WBC None seen (0-5/HPF) Ur Squamous Epith Cells None seen (0-5/HPF) Urine Bacteria None seen (None) Ur Culture Indicated? Cult not indicated Vol Urine Centrifuged 10ml (spun) Salicylates (<20) mg/dL U Opiates 300ng/mL cut Negative (Negative) Ur Oxycodone Screen Negative (Negative) Urine Methadone Screen Negative (Negative) Acetaminophen (10-30) ug/mL Ur Barbiturates Screen Negative (Negative) U Tricyclic Antidepress Negative (Negative) Ur Phencyclidine Scrn Negative (Negative) Ur Amphetamines Screen Negative (Negative) U Methamphetamines Scrn Negative (Negative) Ur MDMA Scrn (Ecstasy) Negative (Negative) U Benzodiazepines Scrn Negative (Negative) Urine Cocaine Screen Negative (Negative) U Marijuana (THC) Screen Negative (Negative) Urine Specific [place] Normal (Normal) Ethyl Alcohol ( - 10) mg/dL Ur Creatinine Normal (Normal) SARS-CoV-2 (PCR) Negative (Negative) 07/16/23 Range/Units 19:58 WBC 8.0 (4.5-11.0) X10^3/uL RBC 4.58 (4.5-5.9) X10^6/uL Hgb 13.6 (13.5-17.5) g/dL Hct 39.8 L (41-53) % MCV 86.9 (80-100) fL MCH 29.7 (26-34) PG MCHC 34.2 (30-36) % RDW 14.1 (11.6-14.8) % Plt Count 269 (150-400) X10^3/uL Neut % (Auto) 57.3 (50-75) % Lymph % (Auto) 31.8 (25-40) % [place] % (Auto) 8.3 (3-14) % Eos % (Auto) 2.0 (2-4) % Baso % (Auto) 0.6 (0-2) % Neut # (Auto) 4600 (6154-6400) /uL Lymph # (Auto) 2500 (7758-3060) /uL [place] # (Auto) 700 (0-900) /uL Eos # (Auto) 200 (0-450) /uL Baso # (Auto) 0 (0-100) /uL Sodium 139 (137-145) mmol/L Potassium 3.8 (3.4-5.1) mmol/L Chloride 104 (98-107) mmol/L Carbon Dioxide 25 (22-32) mmol/L BUN 15 (9-20) mg/dL Creatinine 1.10 (0.66-1.25) mg/dL Estimated GFR > 60 (>60) mL/min BUN/Creatinine Ratio 13.6 (6-22) Glucose 95 (70-100) mg/dL Calcium 9.4 (8.4-10.2) mg/dL Total Bilirubin 0.3 (0.2-1.3) mg/dL AST 59 (17-59) IU/L ALT 35 (<50) IU/L Alkaline Phosphatase 81 (38-126) U/L Total Protein 7.9 (6.3-8.2) g/dL Albumin 4.4 (3.5-5.0) g/dL Globulin 3.5 (1.7-4.1) g/dL Albumin/Globulin Ratio 1.3 (1.0-2.8) TSH 4.25 (0.47-4.68) uIU/mL Free T4 0.87 (0.78-2.19) ng/dL Urine Color Urine Appearance Urine pH (4.5-8.0) Ur Specific [place] (1.000-1.035) Urine Protein (Negative) Urine Glucose (UA) (Negative) g/dL Urine Ketones (NEGATIVE) Urine Occult Blood (Negative) Urine Nitrate (Negative) Urine Bilirubin (NEGATIVE) Urine Urobilinogen (0.2) E.U./dL Ur Leukocyte Esterase (NEGATIVE) Urine RBC (0-5/HPF) Urine WBC (0-5/HPF) Ur Squamous Epith Cells (0-5/HPF) Urine Bacteria (None) Ur Culture Indicated? Vol Urine Centrifuged Salicylates < 1.0 (<20) mg/dL U Opiates 300ng/mL cut (Negative) Ur Oxycodone Screen (Negative) Urine Methadone Screen (Negative) Acetaminophen < 10 (10-30) ug/mL Ur Barbiturates Screen (Negative) U Tricyclic Antidepress (Negative) Ur Phencyclidine Scrn (Negative) Ur Amphetamines Screen (Negative) U Methamphetamines Scrn (Negative) Ur MDMA Scrn (Ecstasy) (Negative) U Benzodiazepines Scrn (Negative) Urine Cocaine Screen (Negative) U Marijuana (THC) Screen (Negative) Urine Specific [place] (Normal) Ethyl Alcohol < 10 ( - 10) mg/dL Ur Creatinine (Normal) SARS-CoV-2 (PCR) (Negative) MDM Narrative Medical decision making narrative: 23-year-old male with chronic mental illness presenting with suicidal ideation and anxiety and reports support asleep. He is medically cleared. Awaiting social work evaluation. <Barbara Arroyo, DO - Last Filed: 07/17/23 19:40> Lab Data Labs: Lab Results 07/16/23 07/16/23 07/16/23 Range/Units 19:28 19:28 19:45 WBC (4.5-11.0) X10^3/uL RBC (4.5-5.9) X10^6/uL Hgb (13.5-17.5) g/dL Hct (41-53) % MCV (80-100) fL MCH (26-34) PG MCHC (30-36) % RDW (11.6-14.8) % Plt Count (150-400) X10^3/uL Neut % (Auto) (50-75) % Lymph % (Auto) (25-40) % [place] % (Auto) (3-14) % Eos % (Auto) (2-4) % Baso % (Auto) (0-2) % Neut # (Auto) (4108-7469) /uL Lymph # (Auto) (6502-4563) /uL [place] # (Auto) (0-900) /uL Eos # (Auto) (0-450) /uL Baso # (Auto) (0-100) /uL Sodium (137-145) mmol/L Potassium (3.4-5.1) mmol/L Chloride (98-107) mmol/L Carbon Dioxide (22-32) mmol/L BUN (9-20) mg/dL Creatinine (0.66-1.25) mg/dL Estimated GFR (>60) mL/min BUN/Creatinine Ratio (6-22) Glucose (70-100) mg/dL Calcium (8.4-10.2) mg/dL Total Bilirubin (0.2-1.3) mg/dL AST (17-59) IU/L ALT (<50) IU/L Alkaline Phosphatase (38-126) U/L Total Protein (6.3-8.2) g/dL Albumin (3.5-5.0) g/dL Globulin (1.7-4.1) g/dL Albumin/Globulin Ratio (1.0-2.8) TSH (0.47-4.68) uIU/mL Free T4 (0.78-2.19) ng/dL Urine Color Yellow Urine Appearance Clear Urine pH 7.5 Normal (4.5-8.0) Ur Specific [place] 1.020 (1.000-1.035) Urine Protein Trace H (Negative) Urine Glucose (UA) Negative (Negative) g/dL Urine Ketones Negative (NEGATIVE) Urine Occult Blood Negative (Negative) Urine Nitrate Negative (Negative) Urine Bilirubin Negative (NEGATIVE) Urine Urobilinogen 0.2 (0.2) E.U./dL Ur Leukocyte Esterase Negative (NEGATIVE) Urine RBC None seen (0-5/HPF) Urine WBC None seen (0-5/HPF) Ur Squamous Epith Cells None seen (0-5/HPF) Urine Bacteria None seen (None) Ur Culture Indicated? Cult not indicated Vol Urine Centrifuged 10ml (spun) Salicylates (<20) mg/dL U Opiates 300ng/mL cut Negative (Negative) Ur Oxycodone Screen Negative (Negative) Urine Methadone Screen Negative (Negative) Acetaminophen (10-30) ug/mL Ur Barbiturates Screen Negative (Negative) U Tricyclic Antidepress Negative (Negative) Ur Phencyclidine Scrn Negative (Negative) Ur Amphetamines Screen Negative (Negative) U Methamphetamines Scrn Negative (Negative) Ur MDMA Scrn (Ecstasy) Negative (Negative) U Benzodiazepines Scrn Negative (Negative) Urine Cocaine Screen Negative (Negative) U Marijuana (THC) Screen Negative (Negative) Urine Specific [place] Normal (Normal) Ethyl Alcohol ( - 10) mg/dL Ur Creatinine Normal (Normal) SARS-CoV-2 (PCR) Negative (Negative) 07/16/23 Range/Units 19:58 WBC 8.0 (4.5-11.0) X10^3/uL RBC 4.58 (4.5-5.9) X10^6/uL Hgb 13.6 (13.5-17.5) g/dL Hct 39.8 L (41-53) % MCV 86.9 (80-100) fL MCH 29.7 (26-34) PG MCHC 34.2 (30-36) % RDW 14.1 (11.6-14.8) % Plt Count 269 (150-400) X10^3/uL Neut % (Auto) 57.3 (50-75) % Lymph % (Auto) 31.8 (25-40) % [place] % (Auto) 8.3 (3-14) % Eos % (Auto) 2.0 (2-4) % Baso % (Auto) 0.6 (0-2) % Neut # (Auto) 4600 (1683-9390) /uL Lymph # (Auto) 2500 (4121-0496) /uL [place] # (Auto) 700 (0-900) /uL Eos # (Auto) 200 (0-450) /uL Baso # (Auto) 0 (0-100) /uL Sodium 139 (137-145) mmol/L Potassium 3.8 (3.4-5.1) mmol/L Chloride 104 (98-107) mmol/L Carbon Dioxide 25 (22-32) mmol/L BUN 15 (9-20) mg/dL Creatinine 1.10 (0.66-1.25) mg/dL Estimated GFR > 60 (>60) mL/min BUN/Creatinine Ratio 13.6 (6-22) Glucose 95 (70-100) mg/dL Calcium 9.4 (8.4-10.2) mg/dL Total Bilirubin 0.3 (0.2-1.3) mg/dL AST 59 (17-59) IU/L ALT 35 (<50) IU/L Alkaline Phosphatase 81 (38-126) U/L Total Protein 7.9 (6.3-8.2) g/dL Albumin 4.4 (3.5-5.0) g/dL Globulin 3.5 (1.7-4.1) g/dL Albumin/Globulin Ratio 1.3 (1.0-2.8) TSH 4.25 (0.47-4.68) uIU/mL Free T4 0.87 (0.78-2.19) ng/dL Urine Color Urine Appearance Urine pH (4.5-8.0) Ur Specific [place] (1.000-1.035) Urine Protein (Negative) Urine Glucose (UA) (Negative) g/dL Urine Ketones (NEGATIVE) Urine Occult Blood (Negative) Urine Nitrate (Negative) Urine Bilirubin (NEGATIVE) Urine Urobilinogen (0.2) E.U./dL Ur Leukocyte Esterase (NEGATIVE) Urine RBC (0-5/HPF) Urine WBC (0-5/HPF) Ur Squamous Epith Cells (0-5/HPF) Urine Bacteria (None) Ur Culture Indicated? Vol Urine Centrifuged Salicylates < 1.0 (<20) mg/dL U Opiates 300ng/mL cut (Negative) Ur Oxycodone Screen (Negative) Urine Methadone Screen (Negative) Acetaminophen < 10 (10-30) ug/mL Ur Barbiturates Screen (Negative) U Tricyclic Antidepress (Negative) Ur Phencyclidine Scrn (Negative) Ur Amphetamines Screen (Negative) U Methamphetamines Scrn (Negative) Ur MDMA Scrn (Ecstasy) (Negative) U Benzodiazepines Scrn (Negative) Urine Cocaine Screen (Negative) U Marijuana (THC) Screen (Negative) Urine Specific [place] (Normal) Ethyl Alcohol < 10 ( - 10) mg/dL Ur Creatinine (Normal) SARS-CoV-2 (PCR) (Negative) MDM Narrative Medical decision making narrative: 23-year-old male with chronic mental illness presenting with suicidal ideation and anxiety and reports support asleep. He is medically cleared. Awaiting social work evaluation. Patient signed out to myself by Dr. Becker who states patient has been medically cleared. Reviewed patient's labs. Patient accepted at [facility] for inpatient voluntary. Discharge Plan Departure Patient Disposition: Home Clinical Impression: Chronic schizophrenia, Auditory hallucination Prescriptions: No Action risperidone 3 mg tablet 3 mg PO ONCE PM risperidone 2 mg tablet 2 mg PO DAILY divalproex 500 mg tablet,delayed release (DR/EC) 1,000 mg PO QPM bupropion HCl 150 mg tablet extended release 24 hr 150 mg PO QAM buspirone 5 mg tablet 5 mg PO 3XD PRN (Reason: anxiety) Stand Alone Forms: Patient Portal/API
--- NOTE | 2023-07-17 06:53 | PC.NURSE ---
Shift summary: Pt slept most of this nurses shift. No issues or concerns noted after about 1 hour of administration of hydroxizine.
[2023-07-17 07:36] VITALS: BP 110/56; PULSE 75; RESP 18; TEMP 35.9; O2SAT 96
[2023-07-17] MEDS: ACETAMINOPHEN 325 MG TABLET 975 MG PO (11:38)
[2023-07-17] MEDS: hydrOXYzine HCL 25 MG TABLET 50 MG PO ×2 (11:38→16:20)
--- NOTE | 2023-07-17 11:44 | PC.NURSE ---
patient stated that he does not wish to take his risperodone or buspar due to the adverse effect of increased anxiousness. Since he never takes them individually he is not sure which one makes him feel worse so he doesn't want either one. He is requesting that he be given hydroxyzine at the facility that he is going to.
--- NOTE | 2023-07-17 11:51 | PC.NURSE ---
Addendum entered by Abdirahman Cruz 07/17/23 12:18: Patient was given hydroxzine 50mg and he became relaxed and then realized that he wants and needs help and is wanting to stay and seek mental health support. Original Note: FORGESMITH updated and stated that Mohamud is wanting to go home. He is denying suicidal and homicidal ideations. Marine Plumber to consult with Cruz BECK.
--- NOTE | 2023-07-17 12:00 | PC.NURSE ---
[facility] had no beds this morning; [facility] declined pt; [facility] accepted pt [facility] BLS arrival at 1610
[2023-07-17 12:12] VITALS: BP 142/67; PULSE 76; RESP 18; TEMP 36.6; O2SAT 94
--- NOTE | 2023-07-17 12:20 | CM.SWNOTE ---
ED [facility] Note Upon [facility]'s arrival to ED, [facility] is informed that patient is accepted at [facility] for inpatient after LOGISTICS SERVICE REPRESENTATIVE conducted inpatient bed search. [facility] is informed that patient is anxious and [facility] enters room. [facility] informs patient of acceptance at [facility]. Patient endorses concern for how he will d/c to home and states he is requesting hydroxyzine and concern for the side affects of his other medications. [facility] discusses that the team and psychiatrist will work with patient on his medications. Patient endorses that he had an outpatient appt at [facility] last week but they cannot adjust his meds. [facility] endorses that inpatient can adjust his medications. Patient asks about other hospitals and [facility] states that other hospitals were called but they did not have availability and [facility] has accepted patient. Patient presents with anxiety and reports concerns about going home, once patient was provided rx of hydroxyzine, patient states he is feeling better and wants to pursue placement at [facility]. [facility] encourages patient to discuss how medications make him feel with psychiatrist and team. At this current time, patient denies SI and hallucinations. It is the opinion of this [facility] that patient is appropriate for and will benefit from voluntary inpatient hospitalization as this is patient's second presentation in a week due to concern for SI and hallucinations. Patient chose to d/c to home at his last presentation to ED and has been unable to manage care independent with outpatient. Plan: Patient is voluntary and has been accepted at [facility]. Patient to transfer via BLS this evening at 1615. GERMAN Saldivar
--- NOTE | 2023-07-17 13:14 | PC.NURSE ---
RN sitting 1:1 at bedside this afternoon. At approximately 1312, patient screamed out after sleeping shut up! Upon evaluating patient and asking if he was ok he said yes. When asked if he was hearing voices he responded Yes. When asked what they were saying to him he said Nothing. They're just trying not to let me sleep. RN asked if they were still there and he said no and began to eat his lunch.
[2023-07-17 14:50] VITALS: BP 148/65; PULSE 80; RESP 18; TEMP 37.2; O2SAT 93
== END 2023-07-17 16:23 | disposition home or self-care (01) ==
PROVIDERS: Emergency Medicine; Emergency Provider Emergency Medicine
DX: F20.9 Schizophrenia, unspecified (principal); R44.0 Auditory hallucinations; Z20.822 Contact with and (suspected) exposure to COVID-19
CPT/HCPCS: 36415; 80053; 80305; 80320; 80329; 81001; 84439; 84443; 85025; 87635; 99284; A9270; G0480

== ENCOUNTER 2023-08-21 23:29 | Emergency (ER) | payer MEDICARE, MEDICAID, OTHER, SELFPAY ==
[2023-08-21 23:30] VITALS: BMI 44.3
[2023-08-21 23:49] VITALS: BP 159/77; PULSE 63; RESP 18; TEMP 36.4; O2SAT 95
[2023-08-22 01:00] LABS: Add Manual Diff / Slide Review NO; Basophils Absolute Auto 100 /uL (0-100); Basophils Percent Auto 1.2 % (0-2); Eosinophils Absolute Auto 100 /uL (0-450); Eosinophils Percent Auto 1.5 % (2-4); Hematocrit 38.6 % (41-53); Hemoglobin 13.4 g/dL (13.5-17.5); Lymphocytes Absolute Auto 2000 /uL (1100-4500); Lymphocytes Percent Auto 21.5 % (25-40); Mean Corpuscular HGB Conc 34.7 % (30-36); Mean Corpuscular Hemoglobin 30.3 PG (26-34); Mean Corpuscular Volume 87.1 fL (80-100); Monocytes Absolute Auto 1100 /uL (0-900); Monocytes Percent Auto 11.5 % (3-14); Neutrophils Absolute Auto 6100 /uL (1500-7000); Neutrophils Percent Auto 64.3 % (50-75); Platelet Count 236 X10^3/uL (150-400); Red Blood Cell Count 4.43 X10^6/uL (4.5-5.9); Red Cell Distribution Width 14.6 % (11.6-14.8); White Blood Cell Count 9.5 X10^3/uL (4.5-11.0)
[2023-08-22 01:10] LABS: Acetaminophen < 10 ug/mL (10-30); Alanine Aminotransferase 35 IU/L (<50); Albumin 4.3 g/dL (3.5-5.0); Albumin Globulin Ratio 1.3 (1.0-2.8); Alkaline Phosphatase 77 U/L (38-126); Aspartate Aminotransferase 72 IU/L (17-59); Bilirubin Total 0.5 mg/dL (0.2-1.3); Blood Urea Nitrogen 11 mg/dL (9-20); Calcium 9.2 mg/dL (8.4-10.2); Carbon Dioxide 28 mmol/L (22-32); Chloride 106 mmol/L (98-107); Estimated Glomerular Filt Rate > 60 mL/min (>60); Ethanol (ETOH) < 10 mg/dL; Globulin 3.4 g/dL (1.7-4.1); Glucose 82 mg/dL (70-100); HEMOLYSIS < 15 (0-50); Potassium 3.9 mmol/L (3.4-5.1); Salicylate < 1.0 mg/dL (<20); Sodium 141 mmol/L (137-145); Total Protein 7.7 g/dL (6.3-8.2)
[2023-08-22 01:46] LABS: Free T4, Direct Thyroxine 1.09 ng/dL (0.78-2.19)
[2023-08-22 02:00] LABS: Thyroid Stimulating Hormone 6.35 uIU/mL (0.47-4.68)
--- NOTE | 2023-08-22 04:06 | ED_ITS ---
HPI - Psych <Kari Owens DO - Last Filed: 08/23/23 02:33> General Chief Complaint: Psychiatric Symptoms Stated Complaint: hearing voices from GOD Time Seen by Provider: 08/22/23 01:55 Source: patient Mode of arrival: Ambulatory History of Present Illness HPI Narrative: Patient is a 23-year-old male with history of schizophrenia who presents today with hallucination and auditory voices. Says he was told my got to come to the ED. He has had multiple inpatient psychiatric hospitalizations at [facility] including recently in July and previously in June. He reports that the voice of God inside his head told him to come tonight. Reports he does not feel safe outside he has some thoughts of harming self but has not acted on these. He has been sleeping in the ED Related Data Home Medications Medication Instructions Recorded Confirmed bupropion HCl 150 mg 24 hr tablet, 150 mg PO QAM 03/18/23 07/17/23 extended release divalproex 500 mg tablet,delayed 1,000 mg PO QPM 03/18/23 07/17/23 release buspirone 5 mg tablet 5 mg PO 3XD PRN anxiety 06/22/23 07/17/23 risperidone 2 mg tablet 2 mg PO DAILY 07/17/23 07/17/23 risperidone 3 mg tablet 3 mg PO ONCE PM 07/17/23 07/17/23 Allergies Allergy/AdvReac Type Severity Reaction Status Date / Time No Known Drug Allergies Allergy Verified 07/17/23 11:22 Patient History <DO Andrew Paulson Last Filed: 08/23/23 02:33> Medical History Schizoaffective disorder, bipolar type Social History Smoking Status: Current every day smoker Smoking Status: Current every day smoker tobacco type: cigarettes and vaping Substance Use Type: does not use Exam <DO Andrew Paulson Last Filed: 08/23/23 02:33> Initial Vital Signs Initial Vital Signs: Vital Signs Temperature 97.5 F L 08/21/23 23:49 Pulse Rate 63 08/21/23 23:49 Respiratory Rate 18 08/21/23 23:49 Blood Pressure 159/77 H 08/21/23 23:49 Pulse Oximetry 95 08/21/23 23:49 Oxygen Delivery Method Room Air 08/21/23 23:49 GENERAL: Well-appearing, well-nourished and in no acute distress. CARDIOVASCULAR: peripheral pulses in tact, cap refill <2 sec RESPIRATORY: No respiratory distress, speaks in full sentences without difficulty EXTREMITIES: Normal range of motion, no clubbing or edema. Neurovascularly intact NEUROLOGICAL: Cranial nerves II through XII grossly intact. Normal gait and speech. SKIN: Warm, dry, no petechiae, no rashes or lesions. <Barbara Arroyo DO - Last Filed: 08/23/23 08:04> Initial Vital Signs Initial Vital Signs: Vital Signs Temperature 97.5 F L 08/21/23 23:49 Pulse Rate 63 08/21/23 23:49 Respiratory Rate 18 08/21/23 23:49 Blood Pressure 159/77 H 08/21/23 23:49 Pulse Oximetry 95 08/21/23 23:49 Oxygen Delivery Method Room Air 08/21/23 23:49 Course <Kari Owens DO - Last Filed: 08/23/23 02:33> Orders Ordered: Discontinued Medications Bupropion HCl (Bupropion Xl 150 Mg Tab) 150 mg PO NOW ONE Stop: 08/22/23 07:30 Last Admin: 08/22/23 07:49 Dose: 150 mg Documented By: GUERO Divalproex Sodium (Divalproex Er 250 Mg Tab) 1,000 mg PO DAILY ON LICENSE OF [facility] Last Admin: 08/22/23 10:28 Dose: 1,000 mg Documented By: SPF Vital Signs Vital signs: Vital Signs - 8 hr 08/22/23 07:40 08/22/23 12:40 Temperature 97.9 F Pulse Rate 88 97 H Respiratory Rate 20 14 Blood Pressure 140/76 148/85 H Pulse Oximetry 98 93 Oxygen Delivery Method Room Air Room Air <Barbara Arroyo DO - Last Filed: 08/23/23 08:04> Orders Ordered: Discontinued Medications Bupropion HCl (Bupropion Xl 150 Mg Tab) 150 mg PO NOW ONE Stop: 08/22/23 07:30 Last Admin: 08/22/23 07:49 Dose: 150 mg Documented By: SPF Divalproex Sodium (Divalproex Er 250 Mg Tab) 1,000 mg PO DAILY ON LICENSE OF [facility] Last Admin: 08/22/23 10:28 Dose: 1,000 mg Documented By: SPF Vital Signs Vital signs: Vital Signs - 8 hr 08/22/23 07:40 08/22/23 12:40 Temperature 97.9 F Pulse Rate 88 97 H Respiratory Rate 20 14 Blood Pressure 140/76 148/85 H Pulse Oximetry 98 93 Oxygen Delivery Method Room Air Room Air MDM - Psych <Kari Owens, DO - Last Filed: 08/23/23 02:33> Lab Data 08/22/23 00:44 08/22/23 00:44 Labs: Lab Results 08/22/23 08/22/23 08/22/23 Range/Units 00:44 01:02 05:26 WBC 9.5 (4.5-11.0) X10^3/uL RBC 4.43 L (4.5-5.9) X10^6/uL Hgb 13.4 L (13.5-17.5) g/dL Hct 38.6 L (41-53) % MCV 87.1 (80-100) fL MCH 30.3 (26-34) PG MCHC 34.7 (30-36) % RDW 14.6 (11.6-14.8) % Plt Count 236 (150-400) X10^3/uL Neut % (Auto) 64.3 (50-75) % Lymph % (Auto) 21.5 L (25-40) % [place] % (Auto) 11.5 (3-14) % Eos % (Auto) 1.5 L (2-4) % Baso % (Auto) 1.2 (0-2) % Neut # (Auto) 6100 (9721-4012) /uL Lymph # (Auto) 2000 (9348-7599) /uL [place] # (Auto) 1100 H (0-900) /uL Eos # (Auto) 100 (0-450) /uL Baso # (Auto) 100 (0-100) /uL Sodium 141 (137-145) mmol/L Potassium 3.9 (3.4-5.1) mmol/L Chloride 106 (98-107) mmol/L Carbon Dioxide 28 (22-32) mmol/L BUN 11 (9-20) mg/dL Creatinine 1.37 H (0.66-1.25) mg/dL Estimated GFR > 60 (>60) mL/min BUN/Creatinine Ratio 8.0 (6-22) Glucose 82 (70-100) mg/dL Calcium 9.2 (8.4-10.2) mg/dL Total Bilirubin 0.5 (0.2-1.3) mg/dL AST 72 H (17-59) IU/L ALT 35 (<50) IU/L Alkaline Phosphatase 77 (38-126) U/L Total Protein 7.7 (6.3-8.2) g/dL Albumin 4.3 (3.5-5.0) g/dL Globulin 3.4 (1.7-4.1) g/dL Albumin/Globulin Ratio 1.3 (1.0-2.8) TSH 6.35 H (0.47-4.68) uIU/mL Free T4 1.09 (0.78-2.19) ng/dL Urine RBC None seen (0-5/HPF) Urine WBC None seen (0-5/HPF) Ur Squamous Epith Cells 0-1 /hpf (0-5/HPF) Urine Bacteria None seen (None) Hyaline Casts 0-1/lpf (None) Ur Culture Indicated? Cult not indicated Vol Urine Centrifuged 10ml (spun) Salicylates < 1.0 (<20) mg/dL U Opiates 300ng/mL cut Negative (Negative) Ur Oxycodone Screen Negative (Negative) Urine Methadone Screen Negative (Negative) Acetaminophen < 10 (10-30) ug/mL Ur Barbiturates Screen Negative (Negative) U Tricyclic Antidepress Negative (Negative) Ur Phencyclidine Scrn Negative (Negative) Ur Amphetamines Screen Negative (Negative) U Methamphetamines Scrn Negative (Negative) Ur MDMA Scrn (Ecstasy) Negative (Negative) U Benzodiazepines Scrn Negative (Negative) Urine Cocaine Screen Negative (Negative) U Marijuana (THC) Screen Negative (Negative) Urine pH TNP Urine Specific [place] TNP Ethyl Alcohol < 10 ( - 10) mg/dL Ur Creatinine TNP SARS-CoV-2 (PCR) (Negative) Influenza A (RT-PCR) (NEGATIVE) Influenza B (RT-PCR) (NEGATIVE) RSV (PCR) (Negative) 08/22/23 Range/Units 08:12 WBC (4.5-11.0) X10^3/uL RBC (4.5-5.9) X10^6/uL Hgb (13.5-17.5) g/dL Hct (41-53) % MCV (80-100) fL MCH (26-34) PG MCHC (30-36) % RDW (11.6-14.8) % Plt Count (150-400) X10^3/uL Neut % (Auto) (50-75) % Lymph % (Auto) (25-40) % [place] % (Auto) (3-14) % Eos % (Auto) (2-4) % Baso % (Auto) (0-2) % Neut # (Auto) (6206-0762) /uL Lymph # (Auto) (0201-6119) /uL [place] # (Auto) (0-900) /uL Eos # (Auto) (0-450) /uL Baso # (Auto) (0-100) /uL Sodium (137-145) mmol/L Potassium (3.4-5.1) mmol/L Chloride (98-107) mmol/L Carbon Dioxide (22-32) mmol/L BUN (9-20) mg/dL Creatinine (0.66-1.25) mg/dL Estimated GFR (>60) mL/min BUN/Creatinine Ratio (6-22) Glucose (70-100) mg/dL Calcium (8.4-10.2) mg/dL Total Bilirubin (0.2-1.3) mg/dL AST (17-59) IU/L ALT (<50) IU/L Alkaline Phosphatase (38-126) U/L Total Protein (6.3-8.2) g/dL Albumin (3.5-5.0) g/dL Globulin (1.7-4.1) g/dL Albumin/Globulin Ratio (1.0-2.8) TSH (0.47-4.68) uIU/mL Free T4 (0.78-2.19) ng/dL Urine RBC (0-5/HPF) Urine WBC (0-5/HPF) Ur Squamous Epith Cells (0-5/HPF) Urine Bacteria (None) Hyaline Casts (None) Ur Culture Indicated? Vol Urine Centrifuged Salicylates (<20) mg/dL U Opiates 300ng/mL cut (Negative) Ur Oxycodone Screen (Negative) Urine Methadone Screen (Negative) Acetaminophen (10-30) ug/mL Ur Barbiturates Screen (Negative) U Tricyclic Antidepress (Negative) Ur Phencyclidine Scrn (Negative) Ur Amphetamines Screen (Negative) U Methamphetamines Scrn (Negative) Ur MDMA Scrn (Ecstasy) (Negative) U Benzodiazepines Scrn (Negative) Urine Cocaine Screen (Negative) U Marijuana (THC) Screen (Negative) Urine pH Urine Specific [place] Ethyl Alcohol ( - 10) mg/dL Ur Creatinine SARS-CoV-2 (PCR) Negative (Negative) Influenza A (RT-PCR) Flu a negative (NEGATIVE) Influenza B (RT-PCR) Flu b negative (NEGATIVE) RSV (PCR) Negative (Negative) Urine Dip Bedside Urine Glucose Negative Bedside Urine Bilirubin - Negative Bedside Urine Ketone +++ 80 Urine Specific [place] 1.020 Bedside Urine Occult Blood - Negative Bedside Urine pH 6.5 Bedside Urine Protein - Negative Bedside Urine Urobilinogen - Negative Bedside Urine Nitrite - Negative Bedside Urine Leukocytes - Negative Esterase MDM Narrative Medical decision making narrative: Patient 23-year-old male history of schizophrenia multiple mental health hospitalizations. Presents today for needing to feel safe. Has some mild suicidal ideations. Has been sleeping much of time. Blood work has been reviewed and overall reassuring Signed out to Dr. Arroyo <Barbara Arroyo, DO - Last Filed: 08/23/23 08:04> Lab Data Labs: Lab Results 08/22/23 08/22/23 08/22/23 Range/Units 00:44 01:02 05:26 WBC 9.5 (4.5-11.0) X10^3/uL RBC 4.43 L (4.5-5.9) X10^6/uL Hgb 13.4 L (13.5-17.5) g/dL Hct 38.6 L (41-53) % MCV 87.1 (80-100) fL MCH 30.3 (26-34) PG MCHC 34.7 (30-36) % RDW 14.6 (11.6-14.8) % Plt Count 236 (150-400) X10^3/uL Neut % (Auto) 64.3 (50-75) % Lymph % (Auto) 21.5 L (25-40) % [place] % (Auto) 11.5 (3-14) % Eos % (Auto) 1.5 L (2-4) % Baso % (Auto) 1.2 (0-2) % Neut # (Auto) 6100 (6190-0553) /uL Lymph # (Auto) 2000 (3852-4702) /uL [place] # (Auto) 1100 H (0-900) /uL Eos # (Auto) 100 (0-450) /uL Baso # (Auto) 100 (0-100) /uL Sodium 141 (137-145) mmol/L Potassium 3.9 (3.4-5.1) mmol/L Chloride 106 (98-107) mmol/L Carbon Dioxide 28 (22-32) mmol/L BUN 11 (9-20) mg/dL Creatinine 1.37 H (0.66-1.25) mg/dL Estimated GFR > 60 (>60) mL/min BUN/Creatinine Ratio 8.0 (6-22) Glucose 82 (70-100) mg/dL Calcium 9.2 (8.4-10.2) mg/dL Total Bilirubin 0.5 (0.2-1.3) mg/dL AST 72 H (17-59) IU/L ALT 35 (<50) IU/L Alkaline Phosphatase 77 (38-126) U/L Total Protein 7.7 (6.3-8.2) g/dL Albumin 4.3 (3.5-5.0) g/dL Globulin 3.4 (1.7-4.1) g/dL Albumin/Globulin Ratio 1.3 (1.0-2.8) TSH 6.35 H (0.47-4.68) uIU/mL Free T4 1.09 (0.78-2.19) ng/dL Urine RBC None seen (0-5/HPF) Urine WBC None seen (0-5/HPF) Ur Squamous Epith Cells 0-1 /hpf (0-5/HPF) Urine Bacteria None seen (None) Hyaline Casts 0-1/lpf (None) Ur Culture Indicated? Cult not indicated Vol Urine Centrifuged 10ml (spun) Salicylates < 1.0 (<20) mg/dL U Opiates 300ng/mL cut Negative (Negative) Ur Oxycodone Screen Negative (Negative) Urine Methadone Screen Negative (Negative) Acetaminophen < 10 (10-30) ug/mL Ur Barbiturates Screen Negative (Negative) U Tricyclic Antidepress Negative (Negative) Ur Phencyclidine Scrn Negative (Negative) Ur Amphetamines Screen Negative (Negative) U Methamphetamines Scrn Negative (Negative) Ur MDMA Scrn (Ecstasy) Negative (Negative) U Benzodiazepines Scrn Negative (Negative) Urine Cocaine Screen Negative (Negative) U Marijuana (THC) Screen Negative (Negative) Urine pH TNP Urine Specific [place] TNP Ethyl Alcohol < 10 ( - 10) mg/dL Ur Creatinine TNP SARS-CoV-2 (PCR) (Negative) Influenza A (RT-PCR) (NEGATIVE) Influenza B (RT-PCR) (NEGATIVE) RSV (PCR) (Negative) 08/22/23 Range/Units 08:12 WBC (4.5-11.0) X10^3/uL RBC (4.5-5.9) X10^6/uL Hgb (13.5-17.5) g/dL Hct (41-53) % MCV (80-100) fL MCH (26-34) PG MCHC (30-36) % RDW (11.6-14.8) % Plt Count (150-400) X10^3/uL Neut % (Auto) (50-75) % Lymph % (Auto) (25-40) % [place] % (Auto) (3-14) % Eos % (Auto) (2-4) % Baso % (Auto) (0-2) % Neut # (Auto) (4928-0861) /uL Lymph # (Auto) (6048-9990) /uL [place] # (Auto) (0-900) /uL Eos # (Auto) (0-450) /uL Baso # (Auto) (0-100) /uL Sodium (137-145) mmol/L Potassium (3.4-5.1) mmol/L Chloride (98-107) mmol/L Carbon Dioxide (22-32) mmol/L BUN (9-20) mg/dL Creatinine (0.66-1.25) mg/dL Estimated GFR (>60) mL/min BUN/Creatinine Ratio (6-22) Glucose (70-100) mg/dL Calcium (8.4-10.2) mg/dL Total Bilirubin (0.2-1.3) mg/dL AST (17-59) IU/L ALT (<50) IU/L Alkaline Phosphatase (38-126) U/L Total Protein (6.3-8.2) g/dL Albumin (3.5-5.0) g/dL Globulin (1.7-4.1) g/dL Albumin/Globulin Ratio (1.0-2.8) TSH (0.47-4.68) uIU/mL Free T4 (0.78-2.19) ng/dL Urine RBC (0-5/HPF) Urine WBC (0-5/HPF) Ur Squamous Epith Cells (0-5/HPF) Urine Bacteria (None) Hyaline Casts (None) Ur Culture Indicated? Vol Urine Centrifuged Salicylates (<20) mg/dL U Opiates 300ng/mL cut (Negative) Ur Oxycodone Screen (Negative) Urine Methadone Screen (Negative) Acetaminophen (10-30) ug/mL Ur Barbiturates Screen (Negative) U Tricyclic Antidepress (Negative) Ur Phencyclidine Scrn (Negative) Ur Amphetamines Screen (Negative) U Methamphetamines Scrn (Negative) Ur MDMA Scrn (Ecstasy) (Negative) U Benzodiazepines Scrn (Negative) Urine Cocaine Screen (Negative) U Marijuana (THC) Screen (Negative) Urine pH Urine Specific [place] Ethyl Alcohol ( - 10) mg/dL Ur Creatinine SARS-CoV-2 (PCR) Negative (Negative) Influenza A (RT-PCR) Flu a negative (NEGATIVE) Influenza B (RT-PCR) Flu b negative (NEGATIVE) RSV (PCR) Negative (Negative) Urine Dip Bedside Urine Glucose Negative Bedside Urine Bilirubin - Negative Bedside Urine Ketone +++ 80 Urine Specific [place] 1.020 Bedside Urine Occult Blood - Negative Bedside Urine pH 6.5 Bedside Urine Protein - Negative Bedside Urine Urobilinogen - Negative Bedside Urine Nitrite - Negative Bedside Urine Leukocytes - Negative Esterase MDM Narrative Medical decision making narrative: Patient 23-year-old male history of schizophrenia multiple mental health hospitalizations. Presents today for needing to feel safe. Has some mild suicidal ideations. Has been sleeping much of time. Blood work has been reviewed and overall reassuring Signed out to Dr. Arroyo 08/22/23 Dr. Arroyo: Patient signed out to myself by Dr. Owens. patient seen and evaluated by myself. Patient has history of schizophrenia, multiple mental health hospitalizations. Has had some suicidal thoughts but no intent. Patient has been medically cleared. After discussion does not appear to be attainable but would like to speak with social work and I think very appropriate. We will order his morning medications he states he takes Depakote a 1000 mg daily, bupropion 150 mg he takes a 3rd medication does not think that it is BuSpar and states he has stopped Risperdal. Patient does take hydroxyzine PRN. Patient met with [facility] is interested in voluntary placement. Seeking placement currently. Patient has been medically cleared. Patient accepted at [facility] by Nati Ratliff. They asked that he arrived at or after 1800. Transportation has been arranged. Discharge Plan Departure Patient Disposition: Xfer Psychiatric Hosp Clinical Impression: Schizophrenia Prescriptions: No Action risperidone 3 mg tablet 3 mg PO ONCE PM risperidone 2 mg tablet 2 mg PO DAILY divalproex 500 mg tablet,delayed release (DR/EC) 1,000 mg PO QPM bupropion HCl 150 mg tablet extended release 24 hr 150 mg PO QAM buspirone 5 mg tablet 5 mg PO 3XD PRN (Reason: anxiety)
[2023-08-22 05:01] LABS: UR Morphine/Opiate cutoff 300 Negative (Negative); Urine Amphetamines Negative (Negative); Urine Barbiturates Negative (Negative); Urine Benzodiazepines Negative (Negative); Urine Cocaine Negative (Negative); Urine MDMA Negative (Negative); Urine Methadone Negative (Negative); Urine Methamphetamines Negative (Negative); Urine Oxycodone Negative (Negative); Urine Phencyclidine Negative (Negative); Urine Tetrahydrocannabinol Negative (Negative); Urine Tricyclic Antidepressant Negative (Negative)
[2023-08-22 05:52] LABS: Bacteria Urine None Seen; Hyaline Casts Urine 0-1/LPF; RBC Urine None Seen (0-5/HPF); Squamous Epithelial Cell Urine 0-1 /HPF (0-5/HPF); Urine Volume 10mL (spun); WBC Urine None Seen (0-5/HPF)
[2023-08-22 05:53] LABS: Culture Indicated Urine Cult Not Indicated
--- NOTE | 2023-08-22 06:01 | PC.NURSE ---
ORIENTATION & MOBILITY SPECIALIST note: Patient sitting on bed reading his Bible. Patient has been extremely polite and soft spoken to staff.
--- NOTE | 2023-08-22 07:13 | PC.NURSE ---
CREATIVE LEAD note: Patient began talking to himself 5 minutes ago saying stop it, stop it quietly, thrusting his hands around him. He stood up and punched the air saying stop it as he went to the bathroom. Jose yee is gonna watch.
--- NOTE | 2023-08-22 07:37 | PC.NURSE ---
Pt sitting up at bedside. He reports that he is feeling safe now that he is here in the ER. He expresses concern for becoming homeless. He lives at home with his dad and 2 younger siblings and is supposed to [facility] live at a family [facility], [facility]. Pt believes the home is not located in [place]. Pt endorses hearing the voice of God talking to him while in the ER. He denies needing any blankets or water at this time. Diet tray is ordered for breakfast.
[2023-08-22 07:40] VITALS: BP 140/76; PULSE 88; RESP 20; O2SAT 98
--- NOTE | 2023-08-22 07:48 | PC.NURSE ---
Addendum entered by Isabel [place] CNA 08/22/23 07:49: this sitter remains at bedside Original Note: meal tray provided; pt sitting at the side of the bed eating his breakfast
[2023-08-22] MEDS: buPROPion XL 150 MG TAB PO (07:49)
--- NOTE | 2023-08-22 08:17 | PC.NURSE ---
Pt states he is willing to seek inpatient psychiatric care. Provider notified.
--- NOTE | 2023-08-22 08:44 | PC.NURSE ---
Patient transferred to a new room . Patient calm and cooperative, polite using Sir and ma'am when responding. Potentially hazardous items and ligature risks removed from room. Call light remains due to unable to unplug without alarming.
[2023-08-22 09:02] LABS: COVID-19 CEPHEID 4-PLEX PCR Negative (Negative); Influenza A - CEPHEID Flu A NEGATIVE (NEGATIVE); Influenza B - CEPHEID Flu B NEGATIVE (NEGATIVE); Respiratory Syncytial Virus Negative (Negative)
[2023-08-22] MEDS: DIVALPROEX ER 250 MG TAB 1000 MG PO (10:28)
--- NOTE | 2023-08-22 10:44 | CM.SWNOTE ---
ED MOLD INSPECTOR Assessment MOLD INSPECTOR - French Edge Operator Assessment MOLD INSPECTOR - French Edge Operator Assessment Start: 08/22/23 09:59 Freq: Status: Active Protocol: Document 08/22/23 09:59 BDL (Rec: 08/22/23 10:43 BDL [id number]) Presenting Problem Pt presents to the ED for ongoing auditory hallucinations and SI. Pt reports that he is hearing the voice of God telling him to go to the ER and that God has been telling him about all his sins and mistakes. Precipitating Event(s) Pt reports that he first began hearing voices years ago when he began smoking marijuana. Pt denies current marijuana use. Pt also reports that recently he has been hearing the voice of God telling him everything that he has done wrong. Pt reports that he has been praying more frequently and cleaning up around the house waiting for my blessings. Patient Strengths Pt feels a little supported by his family. Current Behavioral Health Provider(s) Pt is currently seen for Include Facility, Provider, Ph. # therapy and [facility]. Pt could not remember the names of his providers or which [facility] location. Psych. Hx Mental Health and Chemical Hx of psychosis, depression, Dependency auditory/visual hallucinations , schizophrenia, schizoaffective disorder, SI, and Bipolar disorder. Pt denies PAYTON. Family Hx of Behavioral Abuse None known. Psychiatric Hospitalizations (date(s)/ Pt reports he has been location) hospitalized 13 times in the past three years. Pt recalls stays at [facility], [facility], and [place]. Psychosocial information & Support Pt is a 23 y/o male who lives Systems at home w/ his dad and two younger siblings age 8 and 16. Pt is currently looking into independent living and disclosed to RN that he is supposed to go live at a family jail, or a family home, or something. School/Work None. Mental Status Orientation (Person/Place/Time) A/Ox4 Stated Mood Very tired. Affect (Congruent with Mood?) Euthymic, flat/blunted. Thought Content - Specify/Describe I see my mom and other people Obsessions, Delusions, Hallucinations , sometimes it's good sometimes it's bad. Pt is hyper focused on mu-ism and God. Pt is seeking voluntary placement. Thought Processes (Zmpygyt-Sefzswhw-Qveo Coherent. Fshyrpyc-Jhaceuce-Wpzdhgkmrp- Zpuanxhzospwgy-Nbcczid-Odcavwcxfnyl- Thought Blocking) Speech (Gofdxk-Megs-Qlkxovl-Rapid-Soft- Soft/slow. Loud-Pressured) Motor (Hxofoq-Tjibpxbpe-Mkgv-Other) Normal. Insight (Inqq-Dckh-Qohq/Limited) Fair. Judgement (Zwxn-Hiqm-Xeqw/Limited) Fair. Impulse Control (Adequate-Impaired) Adequate. Memory (Vutmulytj-Uattuw-Jdrydx, Intact. Impaired-Intact) Concentration (Intact-Impaired) Intact. Attention (Intact-Impaired) Intact. Behavior (Appropriate-Inappropriate) Appropriate. Risk Assessment Suicidal Ideation (Plan) Yes Homicidal Ideation (Plan) No Comment Pt reports passive SI to MOLD INSPECTOR. A little bit, I have feelings of depression and that I don' t want to live anymore. Pt reports that he has in the past had intent to act on his SI and had a plan to OD. Pt disclosed that he has access to medication at home. Pt reports the last time he had intent to act on his SI was yesterday. Intervention Intervention MOLD INSPECTOR enters room to meet w/ pt. Pt is asleep laying down. Pt wakes up and is calm and cooperative. Pt is respectful and uses terms sir and anna to address staff. Pt is calm and cooperative. Pt discloses to MOLD INSPECTOR that he has been told by God to come to the ED. Pt reports the first time he heard this voice was when he was doing drugs. Pt later clarified that he previously used marijuana years ago and he immediately began hearing voices at that time. Pt denies any current substance use. Pt has current behavioral health providers at [facility] that he began seeing within the past month. Pt could not remember further information about names and contact information. Pt disclosed a hx of V/A hallucinations, schizophrenia, schizoaffective disorder, SI. Pt denies PAYTON hx otuside of former marijuana use. Pt denied family hx of PAYTON/MH issues. Pt currently lives at home w/ his dad and younger siblings. Pt reports that he is trying to get into independent living . I want to be stable so I can live on my own. Pt reports that he feels a little bit of SI. Pt describes this as depression and feelings of not wanting to live anymore. Pt reports he had intent to act on those thoughts yesterday and had a plan to OD. Pt reports hx of auditory and visual hallucinations. Pt reports he sometimes sees people in addition to hearing the voice of God. Pt reports seeing his mom who is not there and reports those as sometimes good and sometimes bad. Pt has experienced auditory hallucinations dating back to teen substance use w/ marijuana. It is the opinion of this MOLD INSPECTOR that pt would benefit from inpatient BH treatment for stabilization. MOLD INSPECTOR discussed this w/ ED provider Dr. Arroyo who indicated agreement and understanding. Plan RA Plan MOLD INSPECTOR to seek voluntary BH placement. MELISSA Doll, [facility]
[2023-08-22 12:40] VITALS: BP 148/85; PULSE 97; RESP 14; TEMP 36.6; O2SAT 93
--- NOTE | 2023-08-22 14:39 | PC.NURSE ---
pt is currently laying down in bed but not sleeping.
--- NOTE | 2023-08-22 15:03 | PC.NURSE ---
pt was laying down in bed calm when he suddenly shouted. went to check on patient and he states he is okay and sorry for the outburst.
--- NOTE | 2023-08-22 15:30 | PC.NURSE ---
Patient was talking in incoherent sentences in an agitated way. When asked if he wanted any help, the patient refused and said he was okay.
[2023-08-22 17:27] VITALS: BP 139/97; PULSE 111; RESP 24; TEMP 36.8; O2SAT 98
== END 2023-08-22 17:38 ==
PROVIDERS: Emergency Medicine; Emergency Provider Emergency Medicine
DX: F20.9 Schizophrenia, unspecified (principal)
CPT/HCPCS: 0241U; 36415; 80053; 80305; 80320; 80329; 81003; 81015; 84439; 84443; 85025; 99284; G0480

== ENCOUNTER → 2023-11-15 14:30 | Outpatient (CLI) | payer MEDICARE, MEDICAID, OTHER, SELFPAY ==
[2023-11-15 15:35] LABS: Hemoglobin A1C% w Est Avg Glu 5.5 % (4.0-6.0)
[2023-11-15 15:45] LABS: Alanine Aminotransferase 89 IU/L (<50); Albumin 4.5 g/dL (3.5-5.0); Albumin Globulin Ratio 1.6 (1.0-2.8); Alkaline Phosphatase 76 U/L (38-126); Aspartate Aminotransferase 59 IU/L (17-59); BUN Creatinine Ratio 12.4 (6-22); Bilirubin Total 0.5 mg/dL (0.2-1.3); Blood Urea Nitrogen 14 mg/dL (9-20); Calcium 9.4 mg/dL (8.4-10.2); Carbon Dioxide 26 mmol/L (22-32); Chloride 106 mmol/L (98-107); Cholesterol 180 mg/dL (140-199); Estimated Glomerular Filt Rate > 60 mL/min (>60); Globulin 2.8 g/dL (1.7-4.1); Glucose 106 mg/dL (70-100); HDL Cholesterol 31 mg/dL (40-60); HEMOLYSIS < 15 (0-50); LDL Cholesterol Calculated 74 mg/dL (<100); Potassium 4.2 mmol/L (3.4-5.1); Sodium 137 mmol/L (137-145); Total Protein 7.3 g/dL (6.3-8.2); Triglycerides 373 mg/dL (35-150)
[2023-11-15 16:03] LABS: Free T3, Triiodothyronine Free 4.06 pg/mL (2.77-5.27)
[2023-11-15 16:17] LABS: Thyroid Stimulating Hormone 6.81 uIU/mL (0.47-4.68)
[2023-11-17 02:13] LABS: Valproic Acid (Depakene) Total 6 ug/mL (50-100)
== END ==
PROVIDERS: Referring Provider Registered Nurse; Visit Provider Registered Nurse
DX: Z79.899 Other long term (current) drug therapy (principal)
CPT/HCPCS: 36415; 80053; 80061; 80164; 83036; 84443; 84481

== ENCOUNTER → 2024-02-23 16:29 | Outpatient (CLI) | payer OTHER, MEDICAID, SELFPAY ==
[2024-02-23 18:01] LABS: Add Manual Diff / Slide Review NO; Basophils Absolute Auto 100 /uL (0-100); Basophils Percent Auto 1.1 % (0-2); Eosinophils Absolute Auto 100 /uL (0-450); Eosinophils Percent Auto 1.5 % (2-4); Hematocrit 40.3 % (41-53); Hemoglobin 13.7 g/dL (13.5-17.5); Lymphocytes Absolute Auto 3400 /uL (1100-4500); Lymphocytes Percent Auto 35.2 % (25-40); Mean Corpuscular HGB Conc 34.1 % (30-36); Mean Corpuscular Volume 87.9 fL (80-100); Monocytes Absolute Auto 800 /uL (0-900); Monocytes Percent Auto 8.8 % (3-14); Neutrophils Absolute Auto 5100 /uL (1500-7000); Neutrophils Percent Auto 53.4 % (50-75); Platelet Count 330 X10^3/uL (150-400); Red Blood Cell Count 4.58 X10^6/uL (4.5-5.9); Red Cell Distribution Width 13.7 % (11.6-14.8); White Blood Cell Count 9.6 X10^3/uL (4.5-11.0)
[2024-02-23 18:20] LABS: Hemoglobin A1C% w Est Avg Glu 5.8 % (4.0-6.0)
[2024-02-23 18:32] LABS: Alanine Aminotransferase 63 IU/L (<50); Albumin 4.1 g/dL (3.5-5.0); Albumin Globulin Ratio 1.2 (1.0-2.8); Alkaline Phosphatase 113 U/L (38-126); Aspartate Aminotransferase 47 IU/L (17-59); BUN Creatinine Ratio 7.8 (6-22); Bilirubin Total 0.3 mg/dL (0.2-1.3); Blood Urea Nitrogen 7 mg/dL (9-20); Calcium 9.1 mg/dL (8.4-10.2); Carbon Dioxide 24 mmol/L (22-32); Chloride 106 mmol/L (98-107); Cholesterol 171 mg/dL (140-199); Estimated Glomerular Filt Rate > 60 mL/min (>60); Globulin 3.3 g/dL (1.7-4.1); Glucose 106 mg/dL (70-100); HDL Cholesterol 26 mg/dL (40-60); HEMOLYSIS 21 (0-50); LDL Cholesterol Calculated 80 mg/dL (<100); Potassium 3.9 mmol/L (3.4-5.1); Sodium 139 mmol/L (137-145); Total Protein 7.4 g/dL (6.3-8.2); Triglycerides 326 mg/dL (35-150)
[2024-02-23 19:01] LABS: Thyroid Stimulating Hormone 5.11 uIU/mL (0.47-4.68)
[2024-02-25 08:12] LABS: Valproic Acid (Depakene) Total 35 ug/mL (50-100)
== END ==
PROVIDERS: Referring Provider Registered Nurse; Visit Provider Registered Nurse
DX: Z79.899 Other long term (current) drug therapy (principal)
CPT/HCPCS: 36415; 80053; 80061; 80164; 83036; 84443; 85025

== ENCOUNTER 2025-03-03 03:06 | Emergency (ER) | payer MEDICARE, MEDICAID, SELFPAY ==
[2025-03-03 03:37] VITALS: BP 141/93; PULSE 129; RESP 18; TEMP 37.3; O2SAT 96; BMI 50.2
--- NOTE | 2025-03-03 04:22 | ED.GENADULT ---
HPI - General Adult General Chief complaint: Upper Respiratory Symptoms Stated complaint: Irritated throat, vomiting, coughing, Poss covid Time Seen by Provider: 03/03/25 04:22 Source: patient Mode of arrival: Ambulatory History of Present Illness HPI narrative: 24-year-old male with new recent dry cough, sore throat, sinus congestion, requesting COVID test. Denies chest pain shortness of breath. No known exposure to persons specifically with COVID, seemed concerned about possible COVID risk. Current everyday smoker, uses vape cigarettes. Related Data Home Medications ?Medication ?Instructions ?Recorded ?Confirmed bupropion HCl 150 mg 24 hr tablet, 300 mg PO QAM 03/18/23 03/03/25 extended release buspirone 5 mg tablet 10 mg PO 3XD anxiety 06/22/23 03/03/25 hydroxyzine pamoate 25 mg capsule 25 mg PO BID 03/03/25 03/03/25 lamotrigine 150 mg tablet 300 mg PO DAILY 03/03/25 03/03/25 Allergies Allergy/AdvReac Type Severity Reaction Status Date / Time No Known Drug Allergies Allergy Verified 07/17/23 11:22 Patient History Medical History Schizoaffective disorder, bipolar type tobacco type: cigarettes and vaping Exam Narrative Exam Narrative: GENERAL: Well-developed patient, in mild distress. HEAD: Atraumatic. Normocephalic. EYES: Pupils equal round and reactive. Extraocular motions intact. No scleral icterus. No injection or drainage. ENT: Nose without bleeding, purulent drainage. Throat without erythema, tonsillar hypertrophy or exudate. Airway patent. NECK: Trachea midline. Non tender CARDIOVASCULAR: Regular rate and rhythm without murmurs, gallops, or rubs. RESPIRATORY: Clear to auscultation. Breath sounds equal bilaterally. No wheezes, rales, or rhonchi. GASTROINTESTINAL: Abdomen soft, non-tender, nondistended. EXTREMITIES: No edema or joint tenderness. BACK: Nontender without deformity or crepitance. No flank tenderness. NEURO: AOx3. Motor functions grossly nonfocal. SKIN: No rash or erythema of visible areas Initial Vital Signs Initial Vital Signs: Vital Signs Temperature 99.1 F 03/03/25 03:37 Pulse Rate 129 H 03/03/25 03:37 Respiratory Rate 18 03/03/25 03:37 Blood Pressure 141/93 H 03/03/25 03:37 Pulse Oximetry 96 03/03/25 03:37 Oxygen Delivery Method Room Air 03/03/25 03:37 Course Orders Ordered: ED Orders 03/03/25 03:41 Covid-19 + FLU A/B + RSV - PCR Stat Discontinued Medications Albuterol (Albuterol Hfa Prepack) 1 box MISC DIRECTED ONE Stop: 03/03/25 04:37 Last Admin: 03/03/25 04:42 Dose: 1 box Documented By: SHRUTHI Ondansetron HCl (Ondansetron 4 Mg Odt Prepack) 1 bottle MISC DIRECTED ONE Stop: 03/03/25 04:37 Last Admin: 03/03/25 04:42 Dose: 1 bottle Documented By: SHRUTHI Vital Signs Vital signs: Vital Signs - 8 hr 03/03/25 03:37 03/03/25 04:53 Temperature 99.1 F Pulse Rate 129 H 118 H Respiratory Rate 18 18 Blood Pressure 141/93 H 136/88 Pulse Oximetry 96 100 Oxygen Delivery Method Room Air Room Air Medical Decision Making Lab Data Lab results reviewed: Yes I reviewed the patient's lab results. Lab results narrative: COVID flu RSV negative. Labs: Lab Results 03/03/25 Range/Units 03:41 SARS-CoV-2 (PCR) Negative (Negative) Influenza A (RT-PCR) Flu a negative (NEGATIVE) Influenza B (RT-PCR) Flu b negative (NEGATIVE) RSV (PCR) Negative (Negative) MDM Narrative Medical decision making narrative: 24-year-old male with recent upper respiratory infection symptoms requests COVID screening. COVID RSV flu swab negative. No oxygen requirement. Consider inhaler, advised [id number] Robitussin DM for cough control. Advised hydration, Tylenol as needed for fever or pain control. Discharged home. Return precautions discussed. Discharge Plan Departure Patient Disposition: Home Clinical Impression: Acute upper respiratory infection, Nausea and vomiting Activity Restrictions/Additional Instructions: Recent cough, concern for possible COVID. COVID and influenza and RSV swab was negative. Recent vomiting with some sore throat, oropharyngeal exam on direct examination was reassuring without obvious exudates. Consider [id number] Robitussin DM for control of cough symptoms. Dispensed inhaler from the emergency department, with spacer, to use 2 puffs 4 times daily for the next 1 week and then as needed. Dispensed oral dissolvable tablet formulation of ondansetron/Zofran, to take if needed for control of nausea. Recheck symptoms with your regular doctor if not improved in the next couple of days. Return to this/nearest emergency department for any change worsening symptoms or any concerns prior. Prescriptions: No Action lamotrigine 150 mg tablet 300 mg PO DAILY hydroxyzine pamoate 25 mg capsule 25 mg PO BID bupropion HCl 150 mg tablet extended release 24 hr 300 mg PO QAM buspirone 5 mg tablet 10 mg PO 3XD Stand Alone Forms: Patient Portal/API
[2025-03-03 04:26] LABS: Influenza A - CEPHEID Flu A NEGATIVE (NEGATIVE); Influenza B - CEPHEID Flu B NEGATIVE (NEGATIVE)
[2025-03-03 04:35] LABS: COVID-19 CEPHEID 4-PLEX PCR Negative (Negative)
[2025-03-03] MEDS: ONDANSETRON 4 MG ODT PREPACK 1 BOTTLE MISC (04:42)
[2025-03-03] MEDS: ALBUTEROL HFA PREPACK 1 BOX MISC (04:42)
[2025-03-03 04:53] VITALS: BP 136/88; PULSE 118; RESP 18; O2SAT 100
== END 2025-03-03 04:54 | disposition home or self-care (01) ==
PROVIDERS: Emergency Provider Emergency Medicine
DX: J06.9 Acute upper respiratory infection, unspecified (principal); R11.2 Nausea with vomiting, unspecified; F17.290 Nicotine dependence, other tobacco product, uncomplicated
CPT/HCPCS: 87637; 94640; 99281; 99283